=== PATIENT | female | born 1955 | race Caucasian/White ===

== ENCOUNTER 2021-08-11 09:58 | Emergency (ER) | payer MEDICARE, SELFPAY ==
[2021-08-11 10:07] VITALS: BP 168/84; PULSE 81; RESP 16; TEMP 36.8; O2SAT 99
--- NOTE | 2021-08-11 10:10 | ED.NECK ---
HPI - Neck Pain/Injury General Chief Complaint: Neck Pain/Injury Stated Complaint: Neck pain History of Present Illness HPI Narrative: This is a 66 year old female that present to the urgent care with neck pain . Patient denies any injury states that she is stiff and is unable to move her neck and it is severe. Patient is crying and yelping and I am unable to truly get a full description of the issue. Patient states that there is no radiation of pain and there is no falls no headache, no dizziness. Related Data Home Medications Medication Instructions Recorded Confirmed celecoxib 200 mg PO BID 08/11/21 08/11/21 furosemide 20 mg PO DAILY 08/11/21 08/11/21 hydrocodone-acetaminophen 1 tablet PO Q6H PRN 08/11/21 08/11/21 lisinopril-hydrochlorothiazide 1 tablet PO DAILY 08/11/21 08/11/21 oxybutynin chloride 10 mg PO DAILY 08/11/21 08/11/21 Allergies Allergy/AdvReac Type Severity Reaction Status Date / Time codeine Allergy Mild NAUSEA AND Verified 08/11/21 10:16 VOMITING Review of Systems Review of Systems: CONSTITUTIONAL: Denies fever, chills, or sweats. EYES: Denies visual changes, redness, or discharge. ENT: Denies rhinorrhea, congestion, sore throat, or otalgia. positive Neck pain inability CARDIOVASCULAR:Denies chest pain, palpitations, or edema. RESPIRATORY: Denies cough or dyspnea. GASTROINTESTINAL: Denies abdominal pain, nausea, vomiting, or diarrhea. GENITOURINARY: Denies dysuria or hematuria. SKIN:Denies rash or itching. MUSCULOSKELETAL:Denies back pain, joint pain, or myalgia. NEUROLOGIC: Denies headache, numbness, or weakness. PSYCHIATRIC:positive anxiety or depression PMFSH Comments At time as signature, I have reviewed and agree with nursing past medical, social, surgical and family history. Please see nursing chart for further information. There is no relevant family history pertinent to the presenting complaint. Exam Narrative: GENERAL:Well-appearing, crying and yelping well-nourished, and in no acute distress. HEAD:Normocephalic EYES: PERRLA and EOMI. ENT: Nares clear, no rhinorrhea or epistaxis. Mucous membranes moist. NECK: Supple. stiff neck painful turn neck pain with turning neck and up and down movement CHEST: Clear to auscultation. No respiratory distress. HEART: Regular rate and rhythm. Normal peripheral pulses. ABDOMEN: Soft, nontender,, normal active bowel sounds. EXTREMITIES: Normal range of motion. No edema. SKIN: Warm, dry, no rash. NEURO: No focal deficits. Alert and oriented x3. Course Vital Signs Vital signs: Vital Signs Temperature 98.2 F 08/11/21 10:07 Pulse Rate 81 08/11/21 10:07 Respiratory Rate 16 08/11/21 10:07 Blood Pressure 168/84 H 08/11/21 10:07 Pulse Oximetry 99 08/11/21 10:07 Temperature 98.2 F 08/11/21 10:19 Pulse Rate 81 08/11/21 10:19 Respiratory Rate 16 08/11/21 10:19 Blood Pressure 168/84 H 08/11/21 10:19 Pulse Oximetry 99 08/11/21 10:19 MDM - Neck Pain/Injury Differential Diagnosis Differential diagnosis: Likely disc disorder of cervical region, whiplash injury to neck, closed subluxation of cervical spine, cervical radiculopathy and torticollis Discharge Plan Discharge Clinical Impression: Strain of neck muscle Qualifiers: Encounter type: initial encounter Qualified Code(s): S16.1XXA - Strain of muscle, fascia and tendon at neck level, initial encounter Hypertension Qualifiers: Hypertension type: unspecified Qualified Code(s): I10 - Essential (primary) hypertension Patient Disposition: Home, Self-Care Condition: Stable Instructions: Antibiotic Form, Cervical Strain (ED), Hypertension (ED) Additional Instructions: Your blood pressure was elevated in the clinic today, I feel that this is due to your acute illness rather than essential hypertension. please follow-up with your regular doctor for further evaluation and monitor for evaluation of hypertension Please ELISEO schedule a followup visi
[2021-08-11 10:19] VITALS: BP 168/84; PULSE 81; RESP 16; TEMP 36.8; O2SAT 99
[2021-08-11] MEDS: KETOROLAC (*BKC) 60 MG/2 ML VIAL 30 MG IM (10:35)
== END 2021-08-11 10:59 | disposition home or self-care (01) ==
PROVIDERS: Emergency Provider Nurse Practitioner Family; PCP Internal Medicine
DX: S16.1XXA Strain of muscle, fascia and tendon at neck level, initial encounter (principal); X58.XXXA Exposure to other specified factors, initial encounter; I10 Essential (primary) hypertension; Z96.653 Presence of artificial knee joint, bilateral; Z96.643 Presence of artificial hip joint, bilateral; Z86.19 Personal history of other infectious and parasitic diseases
CPT/HCPCS: 96372; 99213; G0463; J1885

== ENCOUNTER 2024-08-31 22:54 | Emergency (ER) | payer MEDICARE, OTHER, SELFPAY ==
[2024-08-31 23:05] VITALS: BP 134/76; PULSE 71; RESP 16; TEMP 36.4; O2SAT 100
--- NOTE | 2024-09-01 00:11 | PC.NURSE ---
Patient came up to intake nurse and advised that she was going to go home and call her PCP in the morning. Patient had a steady gait upon exiting the ED.
== END 2024-09-01 00:11 | disposition left against medical advice (07) ==
PROVIDERS: PCP Internal Medicine
DX: R22.42 Localized swelling, mass and lump, left lower limb (principal)
CPT/HCPCS: 99199

== ENCOUNTER 2025-04-26 11:36 | Outpatient (CLI) | payer MEDICARE, SELFPAY ==
--- NOTE | ~2025-04-26 | DEXA_ITS ---
Bone Density Report Name: LORAINE CORONADO Age: 70 Sex: Female Ethnicity: White Date of : 1955 Indication: postmenopausal; screening for osteoporosis; prior fracture; Referring Provider: CARLI RAYA Study: Bone densitometry was performed. Exam Date: April 26, 2025 Accession number: [id number] Bone Density: Region BMD T-score Z-score Classification AP Spine(L1-L4) 1.039 -0.1 2.1 Normal World Health Organization criteria for BMD impression classify patients as: Normal (T-score at or above -1.0), Osteopenia (T-score between -1.0 and -2.5), or Osteoporosis (T-score at or below -2.5). Clinical Information Provided by Patient: Have had a previous hip or vertebral fracture Has had a low trauma fracture Has used the following medications: Vitamin D Patient maximum height was 67 Menopause Age: 49 Drinks caffeinated beverages Onset of menses at age 14 Number of children 1 Impression: The patient has normal bone mass. The patient has risk factors, including: previous fracture. Discussion: INCREASED RISK OF FRACTURE DUE TO HISTORY OF FRACTURE. The patient's previous fracture puts the patient at high risk of a future fracture. In untreated patients, the risk of osteoporotic fracture increases approximately two-fold for each 1.0 SD decrease in T-score. Low bone density is not the only risk factor for fracture; also consider factors such as patient's age, frailty or poor health, risk of falling, risk of injury, previous osteoporotic fracture, family history of osteoporosis, cigarette smoking, low body weight, etc. Not everyone with a low trauma fracture has osteoporosis; osteomalacia and other metabolic bone disorders should also be considered. Patients who have osteoporosis should be evaluated for specific diseases and conditions (secondary causes) that may cause or contribute to bone loss and fracture risk. National Osteoporosis Foundation (NOF) recommends pharmacologic intervention for patients with a prior hip or vertebral fracture regardless of BMD T-score. The patient should follow a healthful lifestyle (good nutrition with adequate calcium and vitamin D, and appropriate weight-bearing exercise). Follow-Up: Consider a repeat BMD and Vertebral Fracture Assessment (VFA) exam in 2 years or sooner if medically necessary, to reassess this patient's status. Reported by: ERIC on 04/26/2025 12:03:00 PM. Reviewed, dictated and finalized at location A.
--- OUTSIDE RECORDS SUMMARY | 2025-04-26 13:29 | XMS_ITS | Data Portability ---
Author Organization [facility] Address [address] [place] [address] Care Team Providers Care Fuel Conversion Technician Name Role Phone CARLI SRINIVASAN Primary Care Provider Assessment Encounter Date Assessment Date Assessment LastModified by Organization Details LastModified Time 05/11/2024 05/11/2024 doxycycline ibup rofen warm compresses follow up 1 week [email or web address] Not available 06/19/2024 16:49:25 05/19/2024 05/19/2024 continue with wa rm compresses she can use anti-inflammatories she has finished her antibiotics. See me in 2 weeks [email or web address] Not available 05/29/2024 21:22:33 06/30/2024 06/30/2024 I am going to ge t her to Interventional Cardiology see if there is anything that they can do for her varicosities. Oxybutynin for urinary incontinence lisinopril hydrochlorothiazide and Lasix for her blood pressure atorvastatin for dyslipidemia healthy lifestyle care instructions as well see me in 4 months [email or web address] Not available 06/30/2024 23:02:28 01/19/2025 01/19/2025 we will check bl ood work we will hold her atorvastatin phentermine and lisinopril until we get some blood work back. I will see her in a month I have told her to stop her oxybutynin as they are giving her Lasix as well as far as any pain medicines for her postop pain she was to get those from the surgeon also they are requesting some FMLA papers and I have told her to get those filled out by her orthopedist office all the questions have to do with the management of her fractures and what they anticipate the course will be what she will need time off returned to work etc. and that is most appropriately handled by her surgical service see me back 1 month [email or web address] Not available 01/21/2025 16:33:20 03/02/2025 03/02/2025 Blood pressure i s up a little bit but she is in pain she will get her pain medication from her surgeon who did her femur surgery we will order a DEXA I will see her in a month for holding off on the losartan just yet she will monitor it daily at home [email or web address] Not available 03/04/2025 16:27:37 Plan of Treatment Reminders Order Date Submit Date Provider Last Modified By Organization Details Last Modified Time Details Appointments ANY 15 2024 01:15P Lurdes Srinivasan MD Not available Not available Not available Lab lipid panel, serum 2024 025 [facility], [address], [place], [address], 01/20/2025 13:08:33 CBC w/ auto diff [address] [facility], [address], [place], [address], 01/20/2025 13:08:35 CMP, serum or plasma [address] [facility], [address], [place], [address], 01/20/2025 13:08:34 Referral vascular surgeon referral 2023 024 [place], [id number] [address], [address], [place], [address], 07/20/2024 18:19:55 Procedures None recorded. Surgeries None recorded. Imaging DEXA 2024 025 [facility], [address], [place], [address], 04/12/2025 12:35:49 Medication Orders doxycycli ne hyclate 100 mg capsule 2023 024 [facility], [address] [place] [address], [id number], 06/30/2024 16:10:52 Patient TargetsNo targets recorded. Patient Instructions Encounter Date Encounter Id Patient Instructions Last Modified By Organization Details Last Modified Time 05/11/2024 [id number] A healthy lifestyle: care instructions [email or web address] Not available 05/11/2024 18:15:29 06/30/2024 [id number] A healthy lifestyle: care instructions [email or web address] Not available 06/30/2024 17:50:47 01/19/2025 [id number] A healthy lifestyle: care instructions [email or web address] Not available 01/19/2025 20:55:26 Reason for Referral Vascular Surgeon Referral fo r Varicose veins of lower extremity Referring Physician: Carli Srinivasan, Internal Medicine, Encounter Date: 06/30/2024 Results Created Date Observation Date Name Description Value Unit Range Abnormal Flag Note LastModifiedBy Organization Detail LastModifiedTime 01/20/2001/20/2025 LIPID PANEL cholesterol, total 164 mg/dL 100-19 9 Not Available [facility] ([facility]) [address] [place], [address], 01/20/2025 13:08:33 01/20/20 25 01/20/2025 LIPID PANEL triglyceride s 154 mg/dL 0-149 above high normal Not Available [facility] ([facility]) [address] [place], [address], 01/20/2025 13:08:33 01/20/20 25 01/20/2025 LIPID PANEL HDL cholesterol 63 mg/dL >39 Not Available [facility] ([facility]) [address] [place], [address], 01/20/2025 13:08:33 01/20/20 25 01/20/2025 LIPID PANEL VLDL cholesterol max 26 mg/dL 5-40 Not Available [facility] ([facility]) [address] [facility], [place], [address], 01/20/2025 13:08:33 01/20/20 25 01/20/2025 LIPID PANEL LDL chol calc ([facility]) 75 mg/dL 0-99 Not Available [facility] ([facility]) [address] [place], [address], 01/20/2025 13:08:33 01/20/20 25 01/20/2025 CMP14 glucose 114 mg/dL 70-99 above high normal Not Available [facility] ([facility]) [address] [place], [address], 01/20/2025 13:08:34 01/20/20 25 01/20/2025 CMP14 BUN 32 mg/dL 8-27 above high normal Not Available [facility] ([facility]) [address] [place], [address], 01/20/2025 13:08:34 01/20/20 25 01/20/2025 CMP14 creatinine 1.59 mg/dL 0.57-1 .00 above high normal Not Available [facility] ([facility]) [address] [place], [address], 01/20/2025 13:08:34 01/20/20 25 01/20/2025 CMP14 eGFR 35 mL/mi n/1.7 3 >59 below low normal Not Available [facility] ([facility]) [address] [place], [address], 01/20/2025 13:08:34 01/20/20 25 01/20/2025 CMP14 BUN/creatini ne ratio 20 12-28 Not Available [facility] ([facility]) [address] [place], [address], 01/20/2025 13:08:34 01/20/20 25 01/20/2025 CMP14 sodium 140 mmol/ L 134-14 4 Not Available [facility] ([facility]) [address] [place], [address], 01/20/2025 13:08:34 01/20/20 25 01/20/2025 CMP14 potassium 4.4 mmol/ L 3.5-5. 2 Not Available [facility] ([facility]) [address] [place] [address], [place], [address], 01/20/2025 13:08:34 01/20/20 25 01/20/2025 CMP14 chloride 102 mmol/ L 96-106 Not Available [facility] ([facility]) [address] [facility], [place], [address], 01/20/2025 13:08:34 01/20/20 25 01/20/2025 CMP14 carbon dioxide, total 24 mmol/ L 20-29 Not Available [facility] ([facility]) [address] [facility], [place], [address], 01/20/2025 13:08:34 01/20/20 25 01/20/2025 CMP14 anion gap 14.0 mmol/ L 10.0-1 8.0 Not Available [facility] ([facility]) [address] [facility], [place], [address], 01/20/2025 13:08:34 01/20/20 25 01/20/2025 CMP14 calcium 9.4 mg/dL 8.7-10 .3 Not Available [facility] ([facility]) [address] [facility], [place], [address], 01/20/2025 13:08:34 01/20/20 25 01/20/2025 CMP14 protein, total 6.8 g/dL 6.0-8. 5 Not Available [facility] ([facility]) [address] [facility], [place], [address], 01/20/2025 13:08:34 01/20/20 25 01/20/2025 CMP14 albumin 4.2 g/dL 3.9-4. 9 Not Available [facility] ([facility]) [address] [facility] [place], [address], 01/20/2025 13:08:34 01/20/20 25 01/20/2025 CMP14 globulin, total 2.6 g/dL 1.5-4. 5 Not Available [facility] ([facility]) [address] [facility] [place], [address], 01/20/2025 13:08:34 01/20/20 25 01/20/2025 CMP14 bilirubin, total 0.3 mg/dL 0.0-1. 2 Not Available [facility] ([facility]) [address] [facility], [place], [address], 01/20/2025 13:08:34 01/20/20 25 01/20/2025 CMP14 alkaline phosphatase 253 IU/L 44-121 above high normal Not Available [facility] ([facility]) [address] [facility] [place], [address], 01/20/2025 13:08:34 01/20/20 25 01/20/2025 CMP14 AST (SGOT) 24 IU/L 0-40 Not Avail able [facility] ([facility]) [address] [facility] [place], [address], 01/20/2025 13:08:34 01/20/20 25 01/20/2025 CMP14 ALT (SGPT) 28 IU/L 0-32 Not Avail able [facility] ([facility]) [address] [facility] [place], [address], 01/20/2025 13:08:34 01/20/20 25 01/20/2025 CBC WITH DIFFE RENTI AL/PL ATELE T WBC 6.8 x10e3 /uL 3.4-10 .8 Not Available [facility] ([facility]) [address] [facility] [place], [address], 01/20/2025 13:08:35 01/20/20 25 01/20/2025 CBC WITH DIFFE RENTI AL/PL ATELE T RBC 3.40 x10e6 /uL 3.77-5 .28 below low normal Not Available [facility] ([facility]) [address] [facility], [place], [address], 01/20/2025 13:08:35 01/20/20 25 01/20/2025 CBC WITH DIFFE RENTI AL/PL ATELE T hemoglobin 10.5 g/dL 11.1-1 5.9 below low normal Not Available [facility] ([facility]) [address] [facility], [place], [address], 01/20/2025 13:08:35 01/20/20 25 01/20/2025 CBC WITH DIFFE RENTI AL/PL ATELE T hematocrit 32.2 % 34.0-4 6.6 below low normal Not Available [facility] ([facility]) [address] [facility], [place], [address], 01/20/2025 13:08:35 01/20/20 25 01/20/2025 CBC WITH DIFFE RENTI AL/PL ATELE T MCV 95 fL 79-97 Not Available [facility] ([facility]) [address] [place], [address], 01/20/2025 13:08:35 01/20/20 25 01/20/2025 CBC WITH DIFFE RENTI AL/PL ATELE T MCH 30.9 pg 26.6-3 3.0 Not Available [facility] ([facility]) [address] [place], [address], 01/20/2025 13:08:35 01/20/20 25 01/20/2025 CBC WITH DIFFE RENTI AL/PL ATELE T MCHC 32.6 g/dL 31.5-3 5.7 Not Available [facility] ([facility]) [address] [place], [address], 01/20/2025 13:08:35 01/20/20 25 01/20/2025 CBC WITH DIFFE RENTI AL/PL ATELE T RDW 13.5 % 11.7-1 5.4 Not Available [facility] ([facility]) [address] [facility], [place], [address], 01/20/2025 13:08:35 01/20/20 25 01/20/2025 CBC WITH DIFFE RENTI AL/PL ATELE T platelets 354 x10e3 /uL 150-45 0 Not Available [facility] ([facility]) [address] [facility], [place], [address], 01/20/2025 13:08:35 01/20/20 25 01/20/2025 CBC WITH DIFFE RENTI AL/PL ATELE T neutrophils 52 % notest ab. Not Available [facility] ([facility]) [address] [facility], [place], [address], 01/20/2025 13:08:35 01/20/20 25 01/20/2025 CBC WITH DIFFE RENTI AL/PL ATELE T lymphs 27 % notest ab. Not Available [facility] ([facility]) [address] [facility], [place], [address], 01/20/2025 13:08:35 01/20/20 25 01/20/2025 CBC WITH DIFFE RENTI AL/PL ATELE T monocytes 13 % notest ab. Not Available [facility] ([facility]) [address] [facility], [place], [address], 01/20/2025 13:08:35 01/20/20 25 01/20/2025 CBC WITH DIFFE RENTI AL/PL ATELE T eos 6 % notest ab. Not Available [facility] ([facility]) [address] [facility], [place], [address], 01/20/2025 13:08:35 01/20/20 25 01/20/2025 CBC WITH DIFFE RENTI AL/PL ATELE T basos 2 % notest ab. Not Available [facility] ([facility]) [address] [facility], [place], [address], 01/20/2025 13:08:35 01/20/20 25 01/20/2025 CBC WITH DIFFE RENTI AL/PL ATELE T neutrophils (absolute) 3.6 x10e3 /uL 1.4-7. 0 Not Available [facility] ([facility]) [address] [facility], [place], [address], 01/20/2025 13:08:35 01/20/20 25 01/20/2025 CBC WITH DIFFE RENTI AL/PL ATELE T lymphs (absolute) 1.8 x10e3 /uL 0.7-3. 1 Not Available [facility] ([facility]) [address] [facility], [place], [address], 01/20/2025 13:08:35 01/20/20 25 01/20/2025 CBC WITH DIFFE RENTI AL/PL ATELE T monocytes(ab solute) 0.9 x10e3 /uL 0.1-0. 9 Not Available [facility] ([facility]) [address] [facility], [place], [address], 01/20/2025 13:08:35 01/20/20 25 01/20/2025 CBC WITH DIFFE RENTI AL/PL ATELE T eos (absolute) 0.4 x10e3 /uL 0.0-0. 4 Not Available [facility] ([facility]) [address] [facility], [place], [address], 01/20/2025 13:08:35 01/20/20 25 01/20/2025 CBC WITH DIFFE RENTI AL/PL ATELE T baso (absolute) 0.1 x10e3 /uL 0.0-0. 2 Not Available [facility] ([facility]) [address] [facility], [place], [address], 01/20/2025 13:08:35 01/20/20 25 01/20/2025 CBC WITH DIFFE RENTI AL/PL ATELE T immature granulocytes 0 % notest ab. Not Available [facility] ([facility]) [address] [facility], [place], [address], 01/20/2025 13:08:35 01/20/20 25 01/20/2025 CBC WITH DIFFE RENTI AL/PL ATELE T immature grans (abs) 0.0 x10e3 /uL 0.0-0. 1 Not Available [facility] ([facility]) [address] [facility], [place], [address], 01/20/2025 13:08:35 08/08/20 24 08/08/2024 US, ani x, venou s, lower extre mity No observ ation record ed. [email or web address] [facility] [address] [facility], [place], [address], 08/09/2024 11:40:39 10/04/20 24 10/04/2024 US, ani sharp, venou s, lower extre mity No observ ation record ed. [email or web address] [facility] [address] [facility], [place], [address], 10/05/2024 12:45:44 11/17/19 25 01/21/2023 MAMMO , scree katerine, digit al, bilat eral No observ ation record ed. BARCODE Not Available 2024 19:59:42 Result Notes None recorded. Problems Name Problem SNOMED Code Status Onset Date Resolution Date Notes Provider Name and Address Organization Details Recorded Time Gastroesophage al reflux disease without esophagitis 463758902 Active 2023 Carli Srinivasan MD Attn: Maria Ines carey,[address] [facility], [place], [address], [facility] 16:46:40 Hyperlipidemia 76637143 Active 2023 Carli Srinivasan MD Attn: Maria Ines carey,[address] [facility], [place], [address], [place] - [facility] 4 16:46:41 Urinary incontinence 508507232 Active 2023 Carli Srinivasan MD Attn: Maria Ines carey,[address] [facility], [place], [address], [place] - [facility] 4 16:46:43 Osteoarthritis 184666252 Active 2023 Carli Srinivasan MD Attn: Maria Ines carey,[address] [facility], [place], [address], [place] - [facility] 4 16:46:44 Varicose veins of lower extremity 04410434 Active 2023 Sahra Shanks MA null, [place] - [facility] 4 16:55:17 Essential hypertension 03932741 Active 2024 Carli Srinivasan MD Attn: Maria Ines carey,[address] [facility], [place], [address], [place] - [facility] 5 16:27:29 Problem Notes None recorded. Procedures Surgical History Date Name Laterality Status Provider Name and Address Organization Details Recorded Time excision of Bartholin's cyst completed Jessica Jaimes [facility] 02/04/2024 16:22:05 bilateral cataract surgery completed Jessica Jaimes [facility] 02/04/2024 16:22:13 Breast Surgery completed Jessica Jaimes [facility] 02/04/2024 16:22:19 Joint Replacement completed Israel Jaimes [facility] 02/04/2024 16:22:26 Tonsillectomy completed Jessica Jaimes [facility] 02/04/2024 16:22:33 Imaging Results None recorded. Procedure Notes None recorded. Medical Equipment None Reported. Allergies No known drug allergies Medications Name Sig Start Date Stop Date Status Note LastModified by Organization Details LastModified Time methocarba mol 500 mg tablet TAKE 2 TABLETS BY MOUTH THREE TIMES DAILY active Not Available Not Available No t Available acetaminop hen 325 mg tablet Take 2 tablets every 6 hours by oral route. active Not Available Not Available No t Available oxybutynin chloride ER 15 mg tablet,ext ended release 24 hr TAKE 1 TABLET BY MOUTH ONCE DAILY active Not Available Not Available No t Available doxycyclin e hyclate 100 mg capsule take ONE capsule twice a DAY by oral route FOR 10 DAYS 06/30 completed Not Available Not Available Not Available atorvastat in 10 mg tablet TAKE 1 TABLET BY MOUTH IN THE EVENING active Not Available Not Available No t Available oxybutynin chloride ER 10 mg tablet,ext ended release 24 hr TAKE 1 TABLET BY MOUTH ONCE DAILY 02/03 completed Not Available Not Available Not Available valacyclov ir 1 gram tablet TAKE 1 TABLET BY MOUTH ONCE DAILY active as needed Not Available Not Available Not Available Zithromax Z-Shlomo 250 mg tablet TAKE 2 TABLETS (500 MG) BY ORAL ROUTE ONCE DAILY FOR 1 DAY THEN 1 TABLET (250 MG) BY ORAL ROUTE ONCE DAILY FOR 4 DAYS 01/19 completed Not Available Not Available Not Available phentermin e 37.5 mg tablet TAKE 1 TABLET BY MOUTH DAILY 01/19 completed Not Available Not Available Not Available famotidine 20 mg tablet TAKE 1 TABLET BY MOUTH ONCE DAILY active Not Available Not Available No t Available neomycin-p olymyxin-d exameth 3.5 mg/mL-10,0 00 unit/mL-0. 1% eye drops INSTILL 1 DROP INTO RIGHT EYE 4 TIMES DAILY FOR 2 WEEKS 02/03 completed Not Available Not Available Not Available nystatin 100,000 unit/gram topical cream APPLY CREAM TOPICALL Y TO AFFECTED AREA TWICE DAILY 02/03 completed Not Available Not Available Not Available hydrochlor othiazide 25 mg tablet TAKE 1/2 (ONE-AMOL F) TABLET BY MOUTH ONCE DAILY active Not Available Not Available No t Available furosemide 20 mg tablet TAKE 1 TABLET BY MOUTH ONCE DAILY active Not Available Not Available No t Available lisinopril 10 mg-hydroch lorothiazi de 12.5 mg tablet Take 1 tablet by mouth once daily 01/19 completed Not Available Not Available Not Available polyethyle ne glycol 3350 17 gram/dose oral powder Take 17 g every day by oral route as needed. active Not Available Not Available No t Available oxycodone 5 mg tablet TAKE 1 TABLET BY MOUTH EVERY 4 HOURS NEEDED FOR PAIN active Not Available Not Available No t Available topiramate 50 mg tablet TAKE 1 TABLET BY MOUTH ONCE DAILY active Not Available Not Available No t Available cholecalci ferol (vitamin D3) 25 mcg (1,000 unit) tablet TAKE 1 TABLET BY MOUTH ONCE DAILY active Not Available Not Available No t Available Eliquis 2.5 mg tablet TAKE 1 TABLET BY MOUTH TWICE DAILY FOR 17 DAYS active Not Available Not Available No t Available BinaxNOW COVID-19 Ag Self Test kit Use as Directed on the Package 02/03 completed Not Available Not Available Not Available Paxlovid 300 mg (150 mg x 2)-100 mg tablets in a dose pack TAKE 3 TABLETS TOGETHER (TWO 150 MG NIRMATRE LVIR TABLETS AND ONE 100 MG RITONAVI R TABLET) BY MOUTH TWICE DAILY FOR 5 DAYS. 02/03 completed Not Available Not Available Not Available Vitals Date Recorded Body height Body mass index (BMI) Body weight Heart rate Oxygen saturation Oxygen saturation in Arterial blood by Pulse oximetry Systolic blood pressure Diastolic blood pressure Provider Name and Address Organization Details Last Updated DateTime 5 172.72 cm 31.1 kg/m2 73155 g 72 /min 98 % 98 % 130 mm[Hg] 84 mm[Hg] Myriam [facility] 5 14:24:59 Date Recorded Body height Body mass index (BMI) Body weight Heart rate Oxygen saturation Oxygen saturation in Arterial blood by Pulse oximetry Systolic blood pressure Diastolic blood pressure Provider Name and Address Organization Details Last Updated DateTime 5 172.72 cm 32.1 kg/m2 29539.3 5 g 73 /min 98 % 98 % 150 mm[Hg] 86 mm[Hg] Myriam Phipps [facility] 5 15:40:00 Date Recorded Body height Heart rate Oxygen saturation Oxygen saturation in Arterial blood by Pulse oximetry Systolic blood pressure Diastolic blood pressure Provider Name and Address Organization Details Last Updated DateTime 4 172.72 cm 77 /min 98 % 98 % 132 mm[Hg] 84 mm[Hg] Bertha Ribeiro MA [facility] 4 16:33:51 Date Recorded Body height Body mass index (BMI) Body weight Heart rate Oxygen saturation Oxygen saturation in Arterial blood by Pulse oximetry Systolic blood pressure Diastolic blood pressure Provider Name and Address Organization Details Last Updated DateTime 4 172.72 cm 29.5 kg/m2 76812.9 2 g 71 /min 97 % 97 % 126 mm[Hg] 74 mm[Hg] Valente Flores MA [facility] 09:55:28 Date Recorded Body height Body mass index (BMI) Body weight Heart rate Oxygen saturation Oxygen saturation in Arterial blood by Pulse oximetry Systolic blood pressure Diastolic blood pressure Provider Name and Address Organization Details Last Updated DateTime 4 172.72 cm 29 kg/m2 95317.4 2 g 76 /min 98 % 98 % 128 mm[Hg] 70 mm[Hg] Bertha Ribeiro MA [place] - [facility] 4 16:04:48 Social History Question Answer Notes LastModified by Organizat ion Details LastModified Time Tobacco Smoking Status Former Smoker quit @ age 38 (31 yrs ago 02/04/24-, gilles) GILLES Johnson [facility], [facility] 02/04/2024 16:23:04 Do You Have An Advance Directive? No Information not available 05/11/2024 Are You Blind Or Do You Have Difficulty Seeing? Yes Glasses Information not available 05/11/2024 What Is Your Level Of Caffeine Consumption? Heavy Information not available 05/11/2024 In The 14 Days Before Symptom Onset, Have You Had Close Contact With A Laboratory-confir med COVID-19 While That Case Was Ill? No Information not available 05/11/2024 In The 14 Days Before Symptom Onset, Have You Had Close Contact With A Person Who Is Under Investigation For COVID-19 While That Person Was Ill? No Information not available 05/11/2024 Have You Been To An Area Known To Be High Risk For COVID-19? No Information not available 05/11/2024 Are You Deaf Or Do You Have Serious Difficulty Hearing? No Information not available 05/11/2024 What Type Of Diet Are You Following? REGULAR Information not available 05/11/2024 Are There Any Guns Present In Your Home? No Information not available 05/11/2024 What Was The Date Of Your Most Recent Tobacco Screening? 03/02/2025 [email or web address] Information not available 03/02/2025 What Is Your Relationship Status? Information not available 05/11/2024 Do You Use Your Seat Belt Or Car Seat Routinely? Yes Information not available 05/11/2024 Do You Have Smoke And Carbon Monoxide Detectors In Your Home? Yes Information not available 05/11/2024 How Much Tobacco Do You Smoke? 1 PPW [email or web address] Information not available 05/19/2024 Do You Use Sunscreen Routinely? Yes Information not available 05/11/2024 Has Tobacco Cessation Counseling Been Provided? No Information not available 05/11/2024 Sex: Female Functional Status Question Answer Note LastModified by Organizat ion Details LastModified Time Do you use any illicit or recreational drugs? No Information not available 05/11/2024 Do you or have you ever used any other forms of tobacco or nicotine? No Information not available 05/11/2024 What is your level of alcohol consumption? None Information not available 05/11/2024 Are you currently employed? No Information not available 05/11/2024 Are you able to care for yourself? Yes Information not available 05/11/2024 What is your exercise level? None Information not available 05/11/2024 Mental Status Question Answer Note LastModified by Organization D etails LastModified Time Do you feel stressed (tense, restless, nervous, or anxious, or unable to sleep at night)? [id number] Information not available 05/11/2024 Family History Relationship Description Onset Age of this Age Resolved Age Notes LastModified by Organization Details LastModified Time Sister Harmful pattern of use of alcohol [email or web address] Not available 01/08 16:23:15 Sister Depressive disorder [email or web address] Not available 01/08 16:23:22 Sister Kidney disease [email or web address] Not available 01/08 16:23:41 Sister Pancreatitis [email or web address] Not av ailable 02/04/2024 16:23:48 Mother Heart disease [email or web address] Not available 01/08 16:23:27 Mother Hypertensive disorder [email or web address] Not available 01/08 16:23:33 Medical History Condition Response Skin Problems Y Muscle, Joint, or Bone Problems Y Acid Reflux (GERD) Y Kidney or Bladder Problems Y Gynecological HistoryNo gynecological history recorded. Obstetrics History GPAL:G 0 P 0 0 0 0 Immunizations Vaccine Type Date Status Note Provider Nam e and Address Organization Details Recorded Time Influenza, split virus, quadrivalent, preservative 7 completed Valente [place], [place] [facility] 05/18/2024 14:05:19 zoster recombinant 8 completed Valente [place] [facility] 05/18/2024 14:05:19 zoster recombinant 8 completed Val[place] [facility] 05/18/2024 14:05:19 Influenza, high-dose, quadrivalent, PF 0 completed Val[place] [facility] 05/18/2024 14:05:19 Influenza, high-dose, quadrivalent, PF 2 completed Valente [place] [facility] 05/18/2024 14:05:19 Influenza, high-dose, quadrivalent, PF 1 completed Valente [place] [facility] 05/18/2024 14:05:19 COVID-19, mRNA, LNP-S, PF, 100 mcg/0.5mL dose or 50 mcg/0.25mL dose 1 completed Valente [place] [facility] 05/18/2024 14:05:20 COVID-19, mRNA, LNP-S, PF, 100 mcg/0.5mL dose or 50 mcg/0.25mL dose 1 completed Valente [place] [facility] 05/18/2024 14:05:20 COVID-19, mRNA, LNP-S, PF, 100 mcg/0.5mL dose or 50 mcg/0.25mL dose 1 completed Valente [place] [facility] 05/18/2024 14:05:20 COVID-19, mRNA, LNP-S, PF, 100 mcg/0.5mL dose or 50 mcg/0.25mL dose 1 completed JENNIFER [place] [facility] 05/18/2024 14:05:20 COVID-19, mRNA, LNP-S, bivalent, PF, 30 mcg/0.3 mL dose 3 [place] [facility] 05/18/2024 14:05:20 pneumococcal polysaccharide PPV23 1 [place] [facility] 05/18/2024 14:05:20 Tdap 3 [place] [facility] 05/18/2024 14:05:20 Pneumococcal conjugate PCV 13 9 [place] [facility] 05/18/2024 14:05:20 zoster live 6 completed [place] [facility] 05/18/2024 14:05:20 Influenza, high-dose, trivalent, PF 9 completed [place] [facility] 05/18/2024 14:05:20 Influenza, split virus, trivalent, preservative 3 completed [place] [facility] 05/18/2024 14:05:20 Influenza, split virus, trivalent, preservative 3 completed [place] [facility] 05/18/2024 14:05:20 Influenza, split virus, trivalent, PF 7 [place] [facility] 05/18/2024 14:05:20 Influenza, split virus, trivalent, PF 5 completed [place] [facility] 05/18/2024 14:05:20 Hep A, adult 7 completed [place] [facility] 05/18/2024 14:05:20 Hep A, adult 6 completed [place] [facility] 05/18/2024 14:05:20 Hep A, adult 6 completed Cindyvignesh JENNIFER Flores null, [facility] 05/18/2024 14:05:20 Influenza, split virus, quadrivalent, PF 6 completed JENNIFER Perdue, [facility] 05/18/2024 14:05:20 Influenza, split virus, quadrivalent, PF 8 completed JENNIFER Perdue, [facility] 05/18/2024 14:05:20 Past Encounters Encounter ID Performer Location Encounter Start Date Encounter Closed Date Diagnosis/Indication Diagnosis SNOMED-CT Code Diagnosis ICD10 Code Diagnosis Note [id number] Carli Srinivasan MD [facility] [employer] [address] [place] [address] 1 02/04/2024 15:54:59 02/04/2024 17:01:11 Gastroesophageal reflux disease without esophagitis 592301762 K21.9 Hyperlipidemia 63676079 E78.5 Urinary incontinence 165 936053 R32 Osteoarthritis 178866269 M19.90 [id number] Carli Srinivasan MD [facility] (Adult Med) [address] [place] [id number] 0 05/11/2024 15:49:01 05/11/2024 17:52:35 Obesity 425492044 E66.8 Thrombophlebitis 7714600 1 I80.9 [id number] Carli Srinivasan MD [facility] [employer] [address] [place] [id number] 1 05/19/2024 09:42:11 05/19/2024 10:53:46 Superficial thrombophlebitis 3295903 I80.9 [id number] Carli Srinivasan MD [facility] [employer] [address] [place] [id number] 1 06/30/2024 14:52:32 06/30/2024 16:55:31 Overweight 458774121 E66.3 Varicose v eins of lower extremity 40251960 I83.93 Gastroesop hageal reflux disease without esophagitis 475326545 K21.9 Hyperlipidemia 40556434 E78.5 Osteoarthritis 901645120 M19.90 Urinary incontinence 165 821734 R32 [id number] Carli Srinivasan MD [facility] [employer] [address] [place] [address] 01/19/2025 14:06:03 01/19/2025 15:22:15 Body mass index 30+ - obesity 145683084 Z68.31 Obesity 186148526 E66.9 Essential hypertension 49182720 I10 Gastroesop hageal reflux disease without esophagitis 383009031 K21.9 Hyperlipidemia 65274167 E78.5 [id number] Carli Srinivasan MD [facility] [employer] [address] [place] [address] 03/02/2025 14:38:35 03/02/2025 17:02:47 Postmenopausal state 18206870 Z78.0 Gastroesop hageal reflux disease without esophagitis 538993239 K21.9 Essential hypertension 67243087 I10 Health Concerns Section Related Observation LastModified by Organization Detai ls LastModified Time None Recorded Concern Status LastModified by Organization Details LastModified Time None Recorded Advance Directives Directive N: Payers Insurance Date Sequence Insurance Name Policy Number Policy Huffman Covered Member ID Huffman Member ID Guarantor Name 04/17/2025 1 [facility] (MEDICARE REPLACEMENT/A DVANTAGE - HMO) [id number] Claribel Mota [id number] Claribel Mota Notes Date Note Type Note Provider Name and Address Organization Details Recorded Time 05/11/2024 text/html red hot area on inside left thigh Carli Srinivasan MD Attn: [address] [place], [address], [facility] 06/19/2024 16:49:40 05/19/2024 text/html leg still hurts a little bit no chest pain or shortness of breath Carli Srinivasan MD Attn: [address] [place], [address], [facility] 05/29/2024 21:24:33 06/30/2024 text/html varicose veins i n her thrombophlebitis is doing better. Overweight needs help losing some weight. GERD no nausea no vomiting. Hyperlipidemia taking her statin trying to lose weight. Osteoarthritis is doing okay urinary incontinence stable she is seeing a weight loss clinic and getting phentermine and topiramate Carli Srinivasan MD Attn: Accounting[address] [facility], [place], [address], [facility] 06/30/2024 23:02:46 01/19/2025 text/html slipped and fell and broke both femurs and had to have surgery at [facility] went to rehab facility there was allegedly some hyperkalemia so they stopped her a her lisinopril they also stopped her phentermine and for unclear reasons they have held her atorvastatin she is in with her sister today doing pretty well JENNIFER Portillo, [place] - [facility] 03/02/2025 09:46:40 03/02/2025 text/html Slow improvement in her leg pain she does not need a DEXA scan she is not on the losartan just it in her blood pressure has been up a little bit but she is in pain Carli Srinivasan MD Attn: Accounting[address] [facility], [place], [address], [facility] 03/04/2025 16:27:54 OBGyn Episode No OBEpisode recorded.
--- OUTSIDE RECORDS SUMMARY | 2025-04-26 13:29 | XMS_ITS | CONTINUITY OF CARE DOCUMENT ---
Author Name joe joe Address Unknown Organization [facility] Address [address] [place] [address] Phone [phone] Care Team Providers Care Online Editor Name Role Phone Yung LEYVA, Last Unavailable [phone] CARLI MACKENZIE MD Unavailable CARLI MACKENZIE MD Unavailable [phone] PROBLEMS Condition Status Date Provider Notes Cardiology examination completed - Last Barragan MD Hypertension active Lastnic Barragan MD Hepatitis C active Lastnic Barragan MD Varicose veins, lower extremities active Lastnic Barragan MD Swelling of bilateral legs active p D as MD ENCOUNTERS Date Type Provider Location Encounter Diag nosis - In-person encounter Office Visit [facility] - [facility] Cardiology examinati on - In-person encounter Office Visit Last Barragan MD [facility] HypertensionHepatiti s CVaricose veins, lower extremitiesSwelling of bilateral legs VITAL SIGNS Date Observation Value Provider Body Mass Index (Ratio) 29.97 kg/m2 nic Barragan MD oxygen saturation, oximetry 98 % Judith Almeida pulse rate 58 /min Judith Almeida blood pressure, diastolic 98 mm[Hg] Promise Almeida blood pressure, systolic 187 mm[Hg] Merissa Almeida weight E&M 191.4 [lb_av] Judith Almeida blood pressure, cuff size regular Em arely Almeida height E&M 67 [in_i] Judith Almeida blood pressure, cuff size regular Am david Joby RN blood pressure, diastolic 102 mm[Hg] Am david Joby RN blood pressure, systolic 179 mm[Hg] Rosston nda Lancaster RN oxygen saturation, oximetry 97 % Hannahdavid Robisonyle RN pulse rate 63 /min Hannahdavid Robisonyle RN height E&M 67 [in_i] Hannah Robisonyle RN respiratory rate E&M 16 /min Hannahdavid Robisonyle RN Body Mass Index (Ratio) 31.01 kg/m2 Sund nic Barragan MD blood pressure, cuff size regular Ke rri Manuel blood pressure, diastolic 100 mm[Hg] Ke rri Deniuenevenuer blood pressure, systolic 164 mm[Hg] Teresita Jackson oxygen saturation, oximetry 98 % Meghan Jackson respiratory rate E&M 14 /min Meghan mcnamara pulse rate 61 /min Meghan Kidd lder weight E&M 198 [lb_av] Meghan Kidd lder height E&M 67 [in_i] Meghan jordaner HISTORY OF MEDICATION USE Medication Status Instructions Dates Provider Indications Com ments phentermine 37.5 mg tablet active TAKE 1 TABLET BY MOUTH BEFORE BREAKFAST Meghan Jackson atorvastatin 10 mg tablet active TAKE 1 TABLET BY MOUTH EVERY DAY Meghan Jackson furosemide 20 mg tablet active take 1 pill as needed for swelling Meghan Jackson lisinopril-hydroc hlorothiazide 10-12.5 mg tablet active TAKE 1 TABLET BY MOUTH ONCE A DAY Meghan Jackson oxybutynin chloride 15 mg tablet extended release 24hr active take 1 pill a day Meghan Jackson valacyclovir 1 gram tablet active TAKE 1 TABLET BY MOUTH ONCE DAILY as needed Meghan Jackson SOCIAL HISTORY Date Observation Value Provider number of grandchildren Last Mckinney QC CHEMIST FUNCTIONAL STATUS Date Observation Value Provider Reason Fall Assessment not done medical c ontraindication Judith Almeida INSURANCE PROVIDERS Payer name Policy type / Coverage type [place] [employer] party ID [employer]AGE ST 0 003 (HMO POS) Medicare [id number] ADVANCE DIRECTIVES Name Date DISCUSSED - NO DECISION MADE TREATMENT PLAN Date Name Performer Cardiology: H er updated medication list for this problem includes: Furosemide 20 Mg Tablet (Furosemide) ..... Take 1 pill as needed for swelling Lisinopril-hydrochlorothiazide 10-12.5 Mg Tablet (Lisinopril-hydrochlorothiazide) ..... Take 1 tablet by mouth once a day BP today: 187/98 P rior BP: 179/102 (08/08/2024) states she has [facility] Last Barragan MD Cardiology:Her venou s doppler shows occluded GSV's, patent and refluxing SSV and b/l vaicose veins with frombosed varicose vein in right thigh. She had varithena on 09/29/24 in left mid thigh and upper calf. Her dopper post procedure showed that these veins were occluded but she had left distal calf and ankle varicose veins and left ankle research and development chemist. October 27, 2024 T gaby she states that SHe has a thrombosed vein in right thigh post procedure and is concerned about it. She has not any more cramps in the left leg like she used to. She has had severe pain righ tthigh where she has a large varicose veins and hurts more at night. has a cord wher eshe has a thrombosed vein in left thigh and left medial calf - pt reassured w ill plan right leg varithena due to severe sx Last Barragan MD Cardiology:same b ut slightly better with compression socls l eft always swells more suspet MTS d /w ppt re eval and rx for this and she will let me know if she wishes to proceed Lastnic Barragan MD Cardiology:Her venou s doppler shows occluded GSV's, patent and refluxing SSV and b/l vaicose veins with frombosed varicose vein in right medial thigh can do varithena fo r varicose veins and venaseal for ssv left thigh varithena first Lastcarmen Barragan MD Cardiology:this is b tk and could be from b/l SSV reflux Yung LEYVA Cardiology:did not t rosario meds today H er updated medication list for this problem includes: Furosemide 20 Mg Tablet (Furosemide) ..... Take 1 pill as needed for swelling Lisinopril-hydrochlorothiazide 10-12.5 Mg Tablet (Lisinopril-hydrochlorothiazide) ..... Take 1 tablet by mouth once a day BP today: 179/102 P rior BP: 164/100 (07/20/2024) Lastnic Barragan MD Cardiology:C/o swell ing/ pain intermittently. T hrombosed veins N O hx of dvt. c heck venous duplex Sandra Nalluri QC CHEMIST Cardiology:2-3+ charissa a BLE t akes lasix as needed L>R could be realted to MTS. c heck venous duplex Sandra Nalluri QC CHEMIST Cardiology:On valcyclovir Neelim a Nalluri QC CHEMIST Cardiology: B P today: 164/100 d id not take medication today Sandra Nalluri QC CHEMIST Date Name Venous Doppler Bilat eral LE Venous Doppler Bilat eral LE - Reflux HISTORY OF PROCEDURES Procedure Date Procedure Name Provider Procedure Notes S sengus Complex e/m visit add on Yung LEYVA completed Complex e/m visit add on Yung LEYVA completed Complex e/m visit add on Yung LEYVA completed EKG Last Barragan MD completed
--- OUTSIDE RECORDS SUMMARY | 2025-04-26 13:29 | XMS_ITS | Referral Summary ---
Author Organization [facility] Address [address] [place] [id number] Care Team Providers Care Plasma Processing Technician Name Role Phone Aakash Srinivasan MD Primary Care Provider Encounters Date Type Department Care Team Description 04/20/2025 9:30 AM CDT - 04/20/2025 11:59 PM CDT Hospital Encounter [facility] [address] [place] [address] Other closed fracture of distal end of right femur with routine healing, subsequent encounter; Other closed fracture of distal end of left femur with routine healing, subsequent encounter Discharge Disposition: Discharge to home or self care 04/20/2025 9:50 AM CDT Office Visit [facility] Orthopaedic Surgery [address] [place] [address] Henok Beach MD Other closed fracture of distal end of right femur with routine healing, subsequent encounter (Primary Dx); Other closed fracture of distal end of left femur with routine healing, subsequent encounter 02/02/2025 12:36 PM CDT - 02/02/2025 11:59 PM CDT Hospital Encounter [facility] [address] [place] [address] Henok Beach MD Other closed fracture of distal end of right femur with routine healing, subsequent encounter; Other closed fracture of distal end of left femur with routine healing, subsequent encounter Discharge Disposition: Discharge to home or self care 02/02/2025 1:00 PM CDT Office Visit [facility] Orthopaedic Surgery Count includes the [facility] 6[address] [place] [address] [place] [address] Henok Beach MD Other closed fracture of distal end of right femur with routine healing, subsequent encounter (Primary Dx); Other closed fracture of distal end of left femur with routine healing, subsequent encounter from Last 3 Months Allergies No known active allergies Medications atorvastatin (LIPITOR) 10 mg tablet Take 1 tablet (10 mg total) by mouth nightly Active furosemide (LASIX) 20 mg tablet Take 1 tablet (20 mg total) by mouth daily 06/09/20 24 Active acetaminophen (TYLENOL) 325 mg tabletIndicatio ns:Pain Take 2 tablets (650 mg total) by mouth every 6 (six) hours 30 tablet 01/04/20 25 Active calcium carbonate (TUMS) 500 mg (200 mg elemental calcium) chewable tablet Take 1 tablet/chew tab (500 mg total) by mouth 4 (four) times a day as needed for indigestion or heartburn 01/04/20 25 026 Active famotidine (PEPCID) 20 mg tablet Take 1 tablet (20 mg total) by mouth daily 01/05/20 25 026 Active senna-docusate (PERICOLACE) 8.6-50 mgIndications:c onstipation Take 2 tablets by mouth 2 (two) times a day as needed for constipation 01/04/20 25 Active apixaban (ELIQUIS) 2.5 mg tabletIndicatio ns:VTE Prophylaxis Following Ortho Surgery Take 1 tablet (2.5 mg total) by mouth 2 (two) times a day For 4 weeks then stop 01/04/20 25 Active cholecalciferol (VITAMIN D-3) 25 mcg (1,000 unit) tablet Take 1 tablet (1,000 Units total) by mouth daily 01/04/20 25 026 Active traMADoL (ULTRAM) 50 mg tablet Take 1 tablet (50 mg total) by mouth every 8 (eight) hours as needed for pain for up to 45 doses 45 tablet 06/12/20 25 Active methocarbamoL (ROBAXIN) 500 mg tablet Take 2 tablets (1,000 mg total) by mouth 3 (three) times a day 01/04/20 25 025 Discontin ued(Thera py completed ) azithromycin (ZITHROMAX) 250 mg tablet 11/30/19 25 025 Discontin ued(Thera py completed ) Tdap (Boostrix Tdap) 2.5-8-5 Lf-mcg-Lf/0.5mL vaccine Discontin ued(Thera py completed ) hydroCHLOROthia zide (HYDRODIURIL) 25 mg tablet Take 0.5 tablets (12.5 mg total) by mouth daily 01/16/20 025 Discontin ued(Thera py completed ) neomycin-polymy red-dexAMETHaso ne (MAXITROL) 3.5mg/mL-10,000 unit/mL-0.1 % ophthalmic suspension INSTILL 1 DROP INTO RIGHT EYE 4 TIMES DAILY FOR 2 WEEKS Discontin ued(Thera py completed ) pneumococcal 13-valent (Prevnar 13, PF,) 0.5 mL vaccine PHARMACIST ADMINISTERED IMMUNIZATION ADMINISTERED AT TIME OF DISPENSING Discontin ued(Thera py completed ) valACYclovir (VALTREX) 500 mg tablet Take 2 tablets (1,000 mg total) by mouth daily Discontin ued(Thera py completed ) varicella zoster (Zostavax, PF,) 19,400 unit/0.65 mL injection Discontin ued(Thera py completed ) HYDROcodone-bharathi taminophen (NORCO) 5-325 mg per tabletIndicatio ns:Pain Take 1 tablet by mouth every 4 (four) hours as needed for pain for up to 30 doses 30 tablet 02/03/20 25 025 Discontin ued(Thera py completed ) Active Problems Problem Noted Date Diagnosed Date Hyperkalemia 12/28/2024 Assessment & Plan (12/29/2024 12:27 PM FLUX CORE WELDER): - Potassium (12/27): 5.0mmol/L - Potassium (12/28): 5.2mmol/L - 12/28: Lokelma 10g BID - Potassium (12/29): 4.5mmol/L - continue to trend Potassium Constipation 12/25/2024 Assessment & Plan (12/29/2024 12:25 PM FLUX CORE WELDER): - 12/25: no BM since admission- milk of magnesia x1 and pericolace increased to 2 tablets. Subsequently, patient reporting not feeling well with nausea. Zofran x1 ordered, bisacodyl suppository x1 - 12/26: enema ordered - 12/29: bowel movement recorded over PM Thrombocytopenia 12/24/2024 Assessment & Plan (12/29/2024 12:27 PM FLUX CORE WELDER): Plt 279 on admission 12/23: Plt 83 12/24: Plt 61 12/25: Plt 76 Likely reactive in setting of ABLA - No lovenox given before platelet levels dropped 12/28: Plt 146 12/29: Plt 164 Continue to monitor CBC Fall 12/24/2024 Assessment & Plan (12/24/2024 11:41 AM FLUX CORE WELDER): Etiology: mechanical TTE obtained for syncope work up (12/23): 1. Concentric LV remodeling. Normal left ventricular systolic function. The Ejection Fraction (Diane's) is measured at 57 %. Left ventricular diastolic parameters are consistent with Grade I diastolic dysfunction (normal LA pressure). The average global longitudinal strain rate is abnormal. There are no regional wall motion abnormalities. Normal right ventricular size. Normal right ventricular systolic function. The estimated pulmonary artery systolic pressure is 40+RA mmHg. Elevated serum creatinine 12/24/2024 Assessment & Plan (12/29/2024 12:26 PM FLUX CORE WELDER): Cr 1.94 on admission Baseline Cr per chart review approximately 1.4-1.9 12/24: Cr 1.79 (2.07), urine output 1050 ml/24 hr + 4 unmeasured occurrences 12/25: UOP 960 ml/24 hr + 6 unmeasured occurrences Creatinine (12/29): 1.72mg/dL Encounter for herb and vitamin supplement manage ment 12/23/2024 Assessment & Plan (12/23/2024 10:14 AM FLUX CORE WELDER): Start vitamin supplementation for healing and nutritional support MVI, Magnesium, Ferrous Sulfate PO, Vit D ABLA (acute blood loss anemia) 12/22/2024 Assessment & Plan (01/02/2025 2:43 PM FLUX CORE WELDER): Admit 12.2 down trend 12/11 to surgical intervention with reported 500 EBL Received total 2 units RBC since admission Hgb wax and wanes 8.7 - 9.3 - 8.1 12/24: Hgb 7.4 (8.1), currently asymptomatic 12/25: Hgb 7.7 Hgb (12/26): 7.7g/dL Hgb (12/28): 7.4g/dL Hgb (12/29): 6.8g/dL 12/29: transfuse 1u pRBC --> post transfusion Hgb 8.6g/dL Hgb (12/30): 8.4g/dL CBC as needed HLD (hyperlipidemia) 12/21/2024 Assessment & Plan (12/21/2024 10:20 AM FLUX CORE WELDER): Chronic Atorvastatin 10 mg daily Overactive bladder 12/21/2024 Assessment & Plan (12/22/2024 9:44 AM FLUX CORE WELDER): Chronic Oxybutynin 15 mg Encounter for medication review 12/21/2024 Assessment & Plan (12/21/2024 10:28 AM FLUX CORE WELDER): [facility] [phone] Treatment Note completed Discharge planning issues 12/21/2024 Assessment & Plan (01/03/2025 11:24 AM FLUX CORE WELDER): 12/21 admit pending Or 12/22 pending stabilization of hgb, PT/OT eval, and drain removal 12/24: hemovac in place, monitor Hgb 12/25: hemovac in place 12/26: awaiting R hemovac removal [must be <30mL], continue PT/OT 12/27 hemovacs out. 12/28: Patient is medically stable for discharge, SW/CM updated. Discharge pending insurance authorization 12/29: transfusion of pRBC over PM. Patient is medically stable for discharge, SW/CM updated. Discharge pending facility acceptance and work comp approval 12/30: Patient is medically stable for discharge, SW/CM updated. Discharge pending facility acceptance Work comp decided not to cover patient's rehab : Appeal is still pending. Liaison will keep CM posted on status. Treatment note done [x] Acute pain 12/21/2024 Assessment & Plan (12/29/2024 12:24 PM FLUX CORE WELDER): Increased Methocarbamol 1000 mg every 8h Acetaminophen 650mg q 6h Oxycodone 5 mg Q 4 hrs prn Bowel regimen Senna, Miralax Closed fracture of neck of left femur, initial e ncounter 12/20/2024 Closed fracture of right distal femur 12/20/2024 Assessment & Plan (12/28/2024 2:22 PM FLUX CORE WELDER): Ortho consult 12/21/24: ORIF + rIMN BL interprosthetic distal femur fx WBAT RLE Eliquis 2.5 bid x 4 weeks Ortho to manage drains, R hemovac removed 12/27 Dressing change in 3 weeks Maintain surgical dressing until follow up PT/OT, pain control Closed fracture of left distal femur 12/20/2024 Assessment & Plan (12/24/2024 11:37 AM FLUX CORE WELDER): ORIF/IMN L interprosthetic distal femur fx WBAT LLE Eliquis 2.5 bid x 4 weeks Ortho to manage drains, L hemovac removed 12/24 Dressing change in 3 weeks Maintain surgical dressing until follow up PT/OT, pain control Swelling of lower extremity 07/20/2024 COVID-19 07/28/2023 Rash 07/06/2023 Nontraumatic complete tear of left rotator cuff 01/03/2022 Overview (01/03/2022): Added automatically from request for surgery [id number] Varicose veins of both legs with edema HTN (hypertension) 02/28/2021 Assessment & Plan (12/21/2024 10:26 AM FLUX CORE WELDER): Chronic Lisinopril 10 mg / Hctz 12.5 Hold resume when clinically appropriate Partial thickness rotator cuff tear 02/28/2021 Ingrowing nail 02/28/2021 Osteoporosis 02/28/2021 Peripheral venous insufficiency 02/28/2021 Pure hypercholesterolemia 02/28/2021 Urinary incontinence 02/28/2021 Venous stasis 02/28/2021 Post-traumatic osteoarthritis of right knee 02/08 Overview (02/28/2021): Added automatically from request for surgery [id number] Gastroesophageal reflux disease without esophagi tis 01/03/2019 Assessment & Plan (01/03/2019 2:55 PM FLUX CORE WELDER): Patient has intermittent heartburn that inconsistently responds to PPIs. No red flags. - We discussed lifestyle modifications that could help. - We discussed the appropriate use of PPI as they should be taken 30-60 minutes before meals. - Will start omeprazole 20 mg every morning. Pain in the shoulder 08/26/2017 Chronic hepatitis C virus infection (CMS/HCC) Assessment & Plan (01/03/2019 2:53 PM FLUX CORE WELDER): Patient with known HCV infection, genotype 1a, prior discontinued interferon/ribavirin treatment due to leukopenia presents to start direct-acting antiviral treatment. She is asymptomatic and recent blood work showed preserved liver function. - Will check HCV viral load, fibrosis score, and CBC. - Depending on findings, will plan to start treatment. - Discussed the importance of not sharing razors or anything that could have dry blood. - Discussed the natural history of HCV and the importance of treatment. Obesity 07/04/2013 Assessment & Plan (12/21/2024 10:21 AM FLUX CORE WELDER): Chronic Phentermine 37.5 mg daily - hold during admission, resume at discharge Immunizations Immunization Administration Dates Next Due Influenza, Unspecified 08/20/2021 Social History Tobacco Use Types Packs/Day Years Used Date Smoking Tobacco: Former Cigarettes 1 25 0 11/09/1969 - 1994 Smokeless Tobacco: Never Tobacco Cessation:Counseling Given: Not Answered Alcohol Use Standard Drinks/Week Comments No 0 (1 standard drink = 0.6 oz pur e alcohol) 1 glass of wine a month Social Connection and Isolat ion Panel [NHANES] Answer Date Recorded In a typical week, how many times do you talk on the phone with family, friends, or neighbors? More than three times a week 12/20/2024 How often do you get togethe r with friends or relatives? More than three times a week 12/20/2024 How often do you attend [facility] or sikhism services? Never 12/20/2024 Do you belong to any clubs o r organizations such as baptist groups, unions, fraternal or athletic groups, or school groups? No 12/20/2024 Attends Club or Organization Meetings Not on nakia e 12/20/2024 Are you , , di vorced, , never , or living with a partner? 12/20/2024 AUDIT-C Answer Date Recorded Q1: How often do you have a drink containing alcohol? Never 12/21/2024 Q2: How many drinks containi ng alcohol do you have on a typical day when you are drinking? Patient does not drink Q3: How often do you have si x or more drinks on one occasion? Never 12/21/2024 Overall Financial Resource Strain (CARDIA) Answe r Date Recorded How hard is it for you to pa y for the very basics like food, housing, medical care, and heating? Not hard at all 12/20/2024 [facility] - Occupational Stress Questionnaire Answer Date Recorded Do you feel stress - tense, restless, nervous, or anxious, or unable to sleep at night because your mind is troubled all the time - these days? Only a little 12/20/2024 Exercise Vital Sign Answer Date Recorde d On average, how many days pe r week do you engage in moderate to strenuous exercise (like a brisk walk)? 5 days 12/20/2024 On average, how many minutes do you engage in exercise at this level? 60 min 12/20/2024 Hunger Vital Sign Answer Date Recorded Within the past 12 months, y ou worried that your food would run out before you got the money to buy more. Never true 12/20/19 25 Within the past 12 months, t he food you bought just didn't last and you didn't have money to get more. Never true 12/20/2024 PRAPARE - Transportation Answer Date Re corded In the past 12 months, has l ack of transportation kept you from medical appointments or from getting medications? No 12/10 In the past 12 months, has l ack of transportation kept you from meetings, work, or from getting things needed for daily living? No 12/20/2024 Housing Stability Vital Sign Answer Fransisco e Recorded In the last 12 months, was t here a time when you were not able to pay the mortgage or rent on time? No 12/20/2024 Number of Times Moved in the Last Year Not on fi le 12/20/2024 At any time in the past 12 m [facility], were you homeless or living in a intermediate (including now)? No 12/20/2024 Personal Safety Answer Date Recorded Have you ever been in or are you currently in a harmful physical or emotional relationship or is someone making you feel afraid or unsafe? 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; [employer] Not on file Not on nakia e Not on file Last Filed Vital Signs Vital Sign Reading Time Taken Comments Blood Pressure 140/88 01/04/2025 11:43 AM FLUX CORE WELDER Pulse 81 01/04/2025 11:43 AM FLUX CORE WELDER Temperature 36.3 C (97.3 F) 01/04/2025 11:43 AM FLUX CORE WELDER Respiratory Rate 18 01/04/2025 11:43 AM FLUX CORE WELDER Oxygen Saturation 99% 01/04/2025 11:43 AM FLUX CORE WELDER Inhaled Oxygen Concentration - - Weight 88.9 kg (196 lb) 12/20/2024 11:56 PM FLUX CORE WELDER Height 170.2 cm (5' 7) 12/20/2024 10:36 PM FLUX CORE WELDER Body Mass Index 30.7 12/20/2024 10:36 PM FLUX CORE WELDER Plan of Treatment Not on file Medical Devices Implanted Type Area Inside Sales Professional Device Identifier Shelf Expiration Date Model / Serial / Lot Synthes Plate Bone Compression Locking Low Profile 16 Hole Right Va Lcp [id number] Ss 02.124.416s - [id number] Implanted:Qty: 1 on 12/21/2024 by Henok Beach MD at [facility] Plate Right: Femur Synthes 124.416S / / [employer] Screw Bone 5mm 80mm Lock Strl 2361-5080s - [id number] Implanted:Qty: 1 on 12/21/2024 by Henok Beach MD at [facility] Screw Left: Femur [employer] [id number] 09/08/2034 2361-5080S / / [id number] [employer] Screw Bone 5mm 50mm Lock Strl 2361-5050s - [id number] Implanted:Qty: 1 on 12/21/2024 by Henok Beach MD at [facility] Screw Left: Femur [employer] [id number] 02/06/2034 2361-5050S / / [id number] [employer] Screw Bone 5mm 70mm Lock Strl 2361-5070s - [id number] Implanted:Qty: 1 on 12/21/2024 by Henok Beach MD at [facility] Screw Left: Femur [employer] [id number] 04/08/2034 2361-5070S / / [id number] [employer] [id number] [place] R High Viscosity Cement 40gm Bone Green - [id number] Implanted:Qty: 1 on 04/01/2021 by Geraldine Portillo MD at [facility] Right: Knee [employer] [id number] 09/08/2024 [id number] / / [id number] [employer] [id number] Palacos R High Viscosity Cement 40gm Bone Green - [id number] Implanted:Qty: 1 on 04/01/2021 by Geraldine Portillo MD at [facility] Right: Knee [employer] [id number] 09/08/2024 [id number] / / [id number] [employer] [id number] Persona 32mm Knee Component Patellar All Poly Latex Free - [id number] Implanted:Qty: 1 on 04/01/2021 by Geraldine Portillo MD at [facility] Right: Knee [employer] [id number] 01/06/2029 [id number] / / [id number] [employer] [id number] Persona 2 Peg Knee Right E Baseplate Tibial Trabecular Metal - [id number] Implanted:Qty: 1 on 04/01/2021 by Geraldine Portillo MD at [facility] Right: Knee [employer] [id number] 03/01/2031 [id number] / / [id number] [employer] [id number] Persona Cruciate Retaining Knee Right 8 Narrow Component Femoral - [id number] Implanted:Qty: 1 on 04/01/2021 by Geraldine Portillo MD at [facility] Right: Knee [employer] [id number] 10/25/2030 [id number] / / [id number] [employer] [id number] Persona 11mm Knee Right 8-11 E-F Insert Articular Vivacit-E - [id number] Implanted:Qty: 1 on 04/01/2021 by Geraldine Portillo MD at [facility] Right: Knee [employer] [id number] 02/06/2025 [id number] / / [id number] [employer] Qex735 Aequalis Perform Reversed 5mm 22mm Peripheral Glenoid Screw - [id number] Implanted:Qty: 1 on 02/05/2022 by Cristian Fu MD at [facility] Left: Shoulder [employer] [id number] / / [employer] [id number] Aequalis Perform Reversed 5mm 38mm Peripheral Glenoid Screw - [id number] Implanted:Qty: 1 on 02/05/2022 by Cristian Fu MD at [facility] Left: Shoulder [employer] [id number] / / [employer] [id number] Insert Perform 10 Deg Dzt6089 - [id number] - [id number] Implanted:Qty: 1 on 02/05/2022 by Cristian Fu MD at [facility] Left: Shoulder [employer] 04/04/2026 [id number] / [id number] / [employer] Dwx2ss Stem Perform Sz 2 Humeral - [id number] - [id number] Implanted:Qty: 1 on 02/05/2022 by Cristian Fu MD at [facility] Left: Shoulder [employer] 10/08/2026 DWX2SS / [id number] / [employer] [id number] Tornier Aequalis Perform 25mm Lateralize Augment Reverse Shoulder - [id number] - [id number] Implanted:Qty: 1 on 02/05/2022 by Cristian Fu MD at [facility] Left: Shoulder [employer] 10/21/2026 NZV363 / [id number] / [employer] [id number] Tornier Aequalis Perform 36mm Reverse Shoulder Standard Sphere - [id number] - [id number] Implanted:Qty: 1 on 02/05/2022 by Cristian Fu MD at [facility] Left: Shoulder [employer] 12/17/2026 SGP396 / [id number] / [employer] [id number] Aequalis Perform Reversed Od6.5 Mm L30 Mm Central Glenoid Screw Baseplate Nonsterile - [id number] Implanted:Qty: 1 on 02/05/2022 by Cristian Fu MD at [facility] Left: Shoulder [employer] [id number] / / [employer] Nail Intramedullary Femoral Retrograde T2 Alpha [id number] Titanium 2339-9712s - [id number] Implanted:Qty: 1 on 12/21/2024 by Henok Beach MD at [facility] Right: Femur [employer] [id number] 01/06/2034 2339-1122S / / [id number] [employer] Screw Bone Locking Cannulated Tibial Oversized Thread Black T2 Alpha 5.0x65mm Titanium 2361-9393s - [id number] Implanted:Qty: 1 on 12/21/2024 by Henok Beach MD at [facility] Right: Femur [employer] [id number] 08/08/2034 2361-5065S / / [id number] [employer] Screw Bone 5mm 75mm Lock Strl 2361-5075s - [id number] Implanted:Qty: 1 on 12/21/2024 by Henok Beach MD at [facility] Right: Femur [employer] [id number] 04/08/2034 2361-5075S / / [id number] [employer] Screw Bone 5mm 80mm Lock Strl 2361-5080s - [id number] Implanted:Qty: 1 on 12/21/2024 by Henok Beach MD at [facility] Right: Femur [employer] [id number] 09/08/20341-5080S / / [id number] [employer] Screw Bone 5mm 35mm T2 Alpha Lock Strl 2360-5035s - [id number] Implanted:Qty: 1 on 12/21/2024 by Henok Beach MD at [facility] Right: Femur [employer] [id number] 07/09/2034 2360-5035S / / [id number] [employer] Screw Bone 5mm 35mm T2 Alpha Lock Strl 2360-5035s - [id number] Implanted:Qty: 1 on 12/21/2024 by Henok Beach MD at [facility] Right: Femur [employer] [id number] 09/08/2034 2360-5035S / / [id number] [employer] Screw Bone 5mm 37.5mm T2 Alpha Lock Strl 2360-5037s - [id number] Implanted:Qty: 1 on 12/21/2024 by Henok Beach MD at [facility] Right: Femur [employer] [id number] 08/08/2034 2360-5037S / / [id number] Synthes 4.5mm 8mm 34mm Self Tap Large Hexagonal Socket Cortex Screw Bone 214.834 - [id number] Implanted:Qty: 1 on 12/21/2024 by Henok Beach MD at [facility] Right: Femur Synthes 214.834 / / Synthes 5mm 70mm Variable Angle Self Tap Lock Stardrive Condylar T25 02.231.270 - [id number] Implanted:Qty: 1 on 12/21/2024 by Henok Beach MD at [facility] Right: Femur Synthes 02.231.270 / / Synthes 5mm 75mm Variable Angle Self Tap Lock [employer] Condylar T25 02.231.275 - [id number] Implanted:Qty: 1 on 12/21/2024 by Henok Beach MD at [facility] Right: Femur Synthes 02.231.275 / / Synthes 5mm 80mm Variable Angle Self Tap Lock [employer] Condylar T25 02.231.280 - [id number] Implanted:Qty: 1 on 12/21/2024 by Henok Beach MD at [facility] Right: Femur Synthes 02.231.280 / / Synthes 5mm 34mm Variable Angle Self Tap Lock [employer] Condylar T25 02.231.234 - [id number] Implanted:Qty: 1 on 12/21/2024 by Henok Beach MD at [facility] Right: Femur Synthes 02.231.234 / / Synthes 5mm 14mm Variable Angle Self Tap Lock [employer] Condylar T25 02.231.014 - [id number] Implanted:Qty: 2 on 12/21/2024 by Henok Beach MD at [facility] Right: Femur Synthes I 02.231.014 / / Synthes 5mm 12mm Variable Angle Self Tap Lock [employer] Condylar T25 02.231.012 - [id number] Implanted:Qty: 1 on 12/21/2024 by Henok Beach MD at [facility] Right: Femur Synthes I 02.231.012 / / [employer] Nail Intramedullary Femoral Retrograde T2 Alpha [id number] Titanium 2339-1122s - [id number] Implanted:Qty: 1 on 12/21/2024 by Henok Beach MD at [facility] Left: Femur [employer] [id number] 05/08/2034 2339-1122S / / [id number] [employer] Screw Bone 5mm 35mm T2 Alpha Lock Strl 2360-5035s - [id number] Implanted:Qty: 1 on 12/21/2024 by Henok Beach MD at [facility] Left: Femur [employer] [id number] 09/08/2034 2360-5035S / / [id number] [employer] Screw Bone 5mm 35mm T2 Alpha Lock Strl 2360-5035s - [id number] Implanted:Qty: 1 on 12/21/2024 by Henok Beach MD at [facility] Left: Femur [employer] [id number] 09/08/2034 2360-5035S / / [id number] Synthes Plate Bone Compression Locking Low Profile 16 Hole Left Va Lcp 4.8p128yk Ss 02.124.417s - [id number] Implanted:Qty: 1 on 12/21/2024 by Henok Beach MD at [facility] Left: Femur Synthes 02.124.417S / / Synthes 4.5mm 8mm 34mm Self Tap Large Hexagonal Socket Cortex Screw Bone 214.834 - [id number] Implanted:Qty: 2 on 12/21/2024 by Henok Beach MD at [facility] Left: Femur Synthes 214.834 / / Synthes 5mm 60mm Variable Angle Self Tap Lock St[employer]rive Condylar T25 02.231.260 - [id number] Implanted:Qty: 1 on 12/21/2024 by Henok Beach MD at [facility] Left: Femur Synthes 02.231.260 / / Synthes 5mm 80mm Variable Angle Self Tap Lock [employer]rive Condylar T25 02.231.280 - [id number] Implanted:Qty: 1 on 12/21/2024 by Henok Beach MD at [facility] Left: Femur Synthes 02.231.280 / / Synthes 5mm 70mm Variable Angle Self Tap Lock [employer] Condylar T25 270 - [id number] Implanted:Qty: 1 on 12/21/2024 by Henok Beach MD at [facility] Left: Femur Synthes 270 / / Synthes 5mm 34mm Variable Angle Self Tap Lock [employer] Condylar T25 234 - [id number] Implanted:Qty: 2 on 12/21/2024 by Henok Beach MD at [facility] Left: Femur Synthes 234 / / Explanted Type Area Inside Sales Professional Device Identifier Shelf Expiration Date Model / Serial / Lot Synthes 5mm 16mm Variable Angle Self Tap Lock Stardrive Condylar T25 016 - [id number] Explanted:Qty: 1 on 12/21/2024 by Henok Beach MD at [facility] Right: Femur Synthes I / / Procedures Procedure Name Priority Date/Time Associated Diagnosis Comments XR FEMUR RIGHT 2 OR MORE VIEWS Schedule Routine, Read Routine (OP Routine) 04/20/2025 9:56 AM CDT Other closed fracture of distal end of right femur with routine healing, subsequent encounter Other closed fracture of distal end of left femur with routine healing, subsequent encounter XR FEMUR LEFT 2 OR MORE VIEWS Schedule Routine, Read Routine (OP Routine) 04/20/2025 9:56 AM CDT Other closed fracture of distal end of right femur with routine healing, subsequent encounter Other closed fracture of distal end of left femur with routine healing, subsequent encounter XR FEMUR LEFT 2 OR MORE VIEWS Schedule Routine, Read Routine (OP Routine) 02/02/2025 12:57 PM CDT Other closed fracture of distal end of right femur with routine healing, subsequent encounter Other closed fracture of distal end of left femur with routine healing, subsequent encounter XR FEMUR RIGHT 2 OR MORE VIEWS Schedule Routine, Read Routine (OP Routine) 02/02/2025 12:57 PM CDT Other closed fracture of distal end of right femur with routine healing, subsequent encounter Other closed fracture of distal end of left femur with routine healing, subsequent encounter HEPATITIS C RNA, QUANTITATIVE, PCR Routine 07/13/2020 11:48 AM CDT Chronic hepatitis C without hepatic coma (HCC) from Last 3 Months or Most Recently Relevant to Health Maintenance Results * XR Femur Right 2 or More Views (04/20/2025 9:56 AM CDT) Anatomical Region Laterality Modality Lower Extremities, Thigh, Femur Right Computed Radiography 04/20/2025 10:3 6 AM CDT Impressions 04/20/2025 10:36 AM CDT Healing, reduced and internally fixated bilateral distal femur fractures in unchanged alignment. Interval fracture of the proximal most interlocking left lateral plate screw. Electronically signed by: Grupo Rojas M.D. Narrative 04/20/2025 10:36 AM CDT XR FEMUR LEFT 2 OR MORE VIEWS, XR FEMUR RIGHT 2 OR MORE VIEWS HISTORY: Bilateral femur fractures. FINDINGS: 2 views each of both femurs are obtained and compared with 02/02/2025. Right femur: There is redemonstrated healing, reduced and internally fixated periprosthetic distal femur fracture with lateral plate and screw construct and retrograde intramedullary nail. There is minimal progressive bridging callus formation. Hardware is intact. Unchanged right total hip and total knee arthroplasties are in expected position. Soft tissues are normal. Left femur: There is redemonstrated healing, reduced and internally fixated distal femoral shaft fracture stabilized by retrograde intramedullary nail and lateral plate and screw construct. There is interval fracture of the proximal most lateral plate and interlocking screw. Remaining hardware is intact. There is progressive osseous bridging at the fracture. 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 Soft tissues are normal. Procedure Note Grupo Rojas MD - 04/20/2025 XR FEMUR LEFT 2 OR MORE VIEWS, XR FEMUR RIGHT 2 OR MORE VIEWS HISTORY: Bilateral femur fractures. FINDINGS: 2 views each of both femurs are obtained and compared with 02/02/2025. Right femur: There is redemonstrated healing, reduced and internally fixated periprosthetic distal femur fracture with lateral plate and screw construct and retrograde intramedullary nail. There is minimal progressive bridging callus formation. Hardware is intact. Unchanged right total hip and total knee arthroplasties are in expected position. Soft tissues are normal. Left femur: There is redemonstrated healing, reduced and internally fixated distal femoral shaft fracture stabilized by retrograde intramedullary nail and lateral plate and screw construct. There is interval fracture of the proximal most lateral plate and interlocking screw. Remaining hardware is intact. There is progressive osseous bridging at the fracture. 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 Soft tissues are normal. IMPRESSION: Healing, reduced and internally fixated bilateral distal femur fractures in unchanged alignment. Interval fracture of the proximal most interlocking left lateral plate screw. Electronically signed by: Grupo Rojas M.D. us Henok Beach MD IMG XR PROCEDURES Final R esult * XR Femur Left 2 or More Views (04/20/2025 9:56 AM CDT) Anatomical Region Laterality Modality Lower Extremities, Thigh, Femur Left Computed Radiography 04/20/2025 10:3 6 AM CDT Impressions 04/20/2025 10:36 AM CDT Healing, reduced and internally fixated bilateral distal femur fractures in unchanged alignment. Interval fracture of the proximal most interlocking left lateral plate screw. Electronically signed by: Grupo Rojas M.D. Narrative 04/20/2025 10:36 AM CDT XR FEMUR LEFT 2 OR MORE VIEWS, XR FEMUR RIGHT 2 OR MORE VIEWS HISTORY: Bilateral femur fractures. FINDINGS: 2 views each of both femurs are obtained and compared with 02/02/2025. Right femur: There is redemonstrated healing, reduced and internally fixated periprosthetic distal femur fracture with lateral plate and screw construct and retrograde intramedullary nail. There is minimal progressive bridging callus formation. Hardware is intact. Unchanged right total hip and total knee arthroplasties are in expected position. Soft tissues are normal. Left femur: There is redemonstrated healing, reduced and internally fixated distal femoral shaft fracture stabilized by retrograde intramedullary nail and lateral plate and screw construct. There is interval fracture of the proximal most lateral plate and interlocking screw. Remaining hardware is intact. There is progressive osseous bridging at the fracture. 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 Soft tissues are normal. Procedure Note Grupo Rojas MD - 04/20/2025 XR FEMUR LEFT 2 OR MORE VIEWS, XR FEMUR RIGHT 2 OR MORE VIEWS HISTORY: Bilateral femur fractures. FINDINGS: 2 views each of both femurs are obtained and compared with 02/02/2025. Right femur: There is redemonstrated healing, reduced and internally fixated periprosthetic distal femur fracture with lateral plate and screw construct and retrograde intramedullary nail. There is minimal progressive bridging callus formation. Hardware is intact. Unchanged right total hip and total knee arthroplasties are in expected position. Soft tissues are normal. Left femur: There is redemonstrated healing, reduced and internally fixated distal femoral shaft fracture stabilized by retrograde intramedullary nail and lateral plate and screw construct. There is interval fracture of the proximal most lateral plate and interlocking screw. Remaining hardware is intact. There is progressive osseous bridging at the fracture. 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 Soft tissues are normal. IMPRESSION: Healing, reduced and internally fixated bilateral distal femur fractures in unchanged alignment. Interval fracture of the proximal most interlocking left lateral plate screw. Electronically signed by: Grupo Rojas M.D. us Henok Beach MD IMG XR PROCEDURES Final R esult * XR Femur Right 2 or More Views (02/02/2025 12:57 PM CDT) Anatomical Region Laterality Modality Lower Extremities, Thigh, Femur Right Computed Radiography 02/02/2025 2:01 PM CDT Impressions 02/02/2025 2:10 PM CDT 1. Healing reduced and internally fixated distal femoral periprosthetic fracture is in unchanged alignment with intact instrumentation. Dictated by: Antonio Cruz MD The radiology attending physician has personally reviewed this study, and had reviewed and/or edited this written report and agrees with it. Electronically signed by: Bassam Elder D.O. Narrative 02/02/2025 2:10 PM CDT EXAMINATION: XR FEMUR RIGHT 2 OR MORE VIEWS, XR FEMUR LEFT 2 OR MORE VIEWS HISTORY: Bilateral femoral fractures COMPARISON: Radiographs 12/22/2024 FINDINGS: Right femur: Healing internally fixated periprosthetic distal right femoral fracture which is comminuted and in unchanged near anatomic alignment with mild displacement of a small butterfly fragment. No evidence of instrumentation failure of the lateral plate and screw construct. Right total hip arthroplasty and right total knee arthroplasty noted. Interval resolution of the soft tissue gas. Partially imaged lumbar spinal instrumented fusion. Osteopenia. Left femur: Healing internally fixated periprosthetic distal left femoral fracture which is comminuted and in unchanged near anatomic alignment with mild displacement of a small butterfly fragment. No evidence of instrumentation failure of the lateral plate and screw construct. Right total hip arthroplasty and right total knee arthroplasty noted. Interval resolution of the soft tissue gas. Osteopenia. Procedure Note Bassam Elder, - 02/02/2025 EXAMINATION: XR FEMUR RIGHT 2 OR MORE VIEWS, XR FEMUR LEFT 2 OR MORE VIEWS HISTORY: Bilateral femoral fractures COMPARISON: Radiographs 12/22/2024 FINDINGS: Right femur: Healing internally fixated periprosthetic distal right femoral fracture which is comminuted and in unchanged near anatomic alignment with mild displacement of a small butterfly fragment. No evidence of instrumentation failure of the lateral plate and screw construct. Right total hip arthroplasty and right total knee arthroplasty noted. Interval resolution of the soft tissue gas. Partially imaged lumbar spinal instrumented fusion. Osteopenia. Left femur: Healing internally fixated periprosthetic distal left femoral fracture which is comminuted and in unchanged near anatomic alignment with mild displacement of a small butterfly fragment. No evidence of instrumentation failure of the lateral plate and screw construct. Right total hip arthroplasty and right total knee arthroplasty noted. Interval resolution of the soft tissue gas. Osteopenia. IMPRESSION: 1. Healing reduced and internally fixated distal femoral periprosthetic fracture is in unchanged alignment with intact instrumentation. Dictated by: Antonio Cruz MD The radiology attending physician has personally reviewed this study, and had reviewed and/or edited this written report and agrees with it. Electronically signed by: Bassam Elder D.O. us Henok Beach MD IMG XR PROCEDURES Final R esult * XR Femur Left 2 or More Views (02/02/2025 12:57 PM CDT) Anatomical Region Laterality Modality Lower Extremities, Thigh, Femur Left Computed Radiography 02/02/2025 2:01 PM CDT Impressions 02/02/2025 2:10 PM CDT 1. Healing reduced and internally fixated distal femoral periprosthetic fracture is in unchanged alignment with intact instrumentation. Dictated by: Antonio Cruz MD The radiology attending physician has personally reviewed this study, and had reviewed and/or edited this written report and agrees with it. Electronically signed by: Bassam Elder D.O. Narrative 02/02/2025 2:10 PM CDT EXAMINATION: XR FEMUR RIGHT 2 OR MORE VIEWS, XR FEMUR LEFT 2 OR MORE VIEWS HISTORY: Bilateral femoral fractures COMPARISON: Radiographs 12/22/2024 FINDINGS: Right femur: Healing internally fixated periprosthetic distal right femoral fracture which is comminuted and in unchanged near anatomic alignment with mild displacement of a small butterfly fragment. No evidence of instrumentation failure of the lateral plate and screw construct. Right total hip arthroplasty and right total knee arthroplasty noted. Interval resolution of the soft tissue gas. Partially imaged lumbar spinal instrumented fusion. Osteopenia. Left femur: Healing internally fixated periprosthetic distal left femoral fracture which is comminuted and in unchanged near anatomic alignment with mild displacement of a small butterfly fragment. No evidence of instrumentation failure of the lateral plate and screw construct. Right total hip arthroplasty and right total knee arthroplasty noted. Interval resolution of the soft tissue gas. Osteopenia. Procedure Note Bassam Elder DO - 02/02/2025 EXAMINATION: XR FEMUR RIGHT 2 OR MORE VIEWS, XR FEMUR LEFT 2 OR MORE VIEWS HISTORY: Bilateral femoral fractures COMPARISON: Radiographs 12/22/2024 FINDINGS: Right femur: Healing internally fixated periprosthetic distal right femoral fracture which is comminuted and in unchanged near anatomic alignment with mild displacement of a small butterfly fragment. No evidence of instrumentation failure of the lateral plate and screw construct. Right total hip arthroplasty and right total knee arthroplasty noted. Interval resolution of the soft tissue gas. Partially imaged lumbar spinal instrumented fusion. Osteopenia. Left femur: Healing internally fixated periprosthetic distal left femoral fracture which is comminuted and in unchanged near anatomic alignment with mild displacement of a small butterfly fragment. No evidence of instrumentation failure of the lateral plate and screw construct. Right total hip arthroplasty and right total knee arthroplasty noted. Interval resolution of the soft tissue gas. Osteopenia. IMPRESSION: 1. Healing reduced and internally fixated distal femoral periprosthetic fracture is in unchanged alignment with intact instrumentation. Dictated by: Antonio Cruz MD The radiology attending physician has personally reviewed this study, and had reviewed and/or edited this written report and agrees with it. Electronically signed by: Bassam Elder D.O. us Henok Beach MD IMG XR PROCEDURES Final R esult * Hepatitis C (HCV) RNA PCR, quantitative (07/13/2020 11:48 AM CDT) HCV RNA result Not Detected TIMO DANIEL ([facility]) Comment: Interpretive data: The quantifiable range of this assay is 15 IU/mL to 100,000,000 IU/mL (1.18 log IU/mL to 8.00 log IU/mL). Testing was performed by the [facility] AmpliPrep/DAVID TaqMan HCV Test version 2.0 ([employer] Testing performed at [facility] Current Interpretive Data was last revised on 2015. Testing performed by: [facility], [address] [facility] [place] [address] Blood specimen (specimen) 07/13/2020 11:48 AM CDT 07/13/2020 8:04 PM CDT Narrative YURY DANIEL ([facility]) - 07/19/2020 7:55 AM CDT Please have this lab completed in August 2020 Please fax results to, , call [phone] with any questions us Lionel Pretty MD LAB MICROBIOLOGY - GEN ERAL ORDERABLES Final Result YURY DANIEL ([facility]) [address] [facility] Department [place] [address] from Last 3 Months or Most Recently Relevant to Health Maintenance Insurance [facility] MEDICARE ADVANTAGE [facility] MEDICARE Address: [address] [address] [place] [address] [facility] CHOICE PLUS [facility] HMO/PPO Address: [address] [address] [place] [address] [facility] MEDICARE MEDICARE [facility] MEDICARE ADVANTAGE [facility] MEDICARE Address: [address] [address] [place] [address] [employer] Advance Directives For more information, please contact: [phone] * Full Code (Latest Code Status on File) Date Activated Date Inactivated Comments 12/20/2024 11:55 PM 01/04/2025 5:39 PM * Full Code Date Activated Date Inactivated Comments 02/05/2022 2:16 PM 02/06/2022 6:05 PM * Full Code Date Activated Date Inactivated Comments 04/01/2021 2:54 PM 04/02/2021 9:10 PM Care Teams Plasma Processing Technician Relationship Specialty Start Date End Date Aakash Srinivasan MD PCP - General 08/17/17
--- OUTSIDE RECORDS SUMMARY | 2025-04-26 13:30 | XMS_ITS | Data Portability ---
Author Organization [place] [facility] [employer], Main Office Address [address] [place] [address] Assessment Encounter Date Assessment Date Assessment LastModified by Organization Details LastModified Time 01/15/2023 01/15/2023 Solu she needs to check her blood pressure regularly she is on phentermine from another provider blood work has been ordered mammograms been ordered colon cancer screening ordered pigmented skin lesion right upper chest dermatology follow-up 4 months [email or web address] Not available 01/15/2023 20:37:03 Plan of Treatment Reminders Order Date Submit Date Provider Last Modified By Organization Details Last Modified Time Details Appointments None recorded. Lab noninvasive colorectal cancer DNA + occult blood screening, QL, stool 2022 023 [facility] (Cologuard Orders Only), [address], [address], [place], [address], 3 09:51:06 CMP, serum or plasma 2022 023 CHRISTOPHER Not available 3 19:02:50 CBC w/ auto diff 2022 023 CHRISTOPHER Not available 3 18:56:02 lipid panel, serum 2022 023 CHRISTOPHER Not available 3 19:02:[address] referral 2022 023 [facility], [facility] [place], [address], 3 09:23:23 Procedures None recorded. Surgeries None recorded. Imaging MAMMO, screening, digital, bilateral 2022 023 CHRISTOPHER Not available 10:53:38 Medication Orders None recorded. Patient TargetsNo targets recorded. Patient InstructionsNo instructions recorded. Reason for Referral Sales Ambassador Referral for S kin lesion Referring Physician: Carli Srinivasan, Internal Medicine, Encounter Date: 01/15/2023 Results Created Date Observation Date Name Description Value Unit Range Abnormal Flag Note LastModifiedBy Organization Detail LastModifiedTime 01/16/2001/15/2023 CBC/C OMPLE TE BLD COUNT W/DIF F white blood cells 6.9 x10'3 /uL 4.2-10 .8 Not Available [facility] (Lab) [address] [place], [address], 01/15/2023 18:56:02 01/16/2001/15/2023 CBC/C OMPLE TE BLD COUNT W/DIF F red blood cells 4.51 x10'6 /uL 3.80-5 .20 Not Available [facility] (Lab) [address] [place], [address], 01/15/2023 18:56:02 01/16/20 23 01/15/2023 CBC/C OMPLE TE BLD COUNT W/DIF F hemoglobin 13.2 g/dL 12.0-1 5.6 Not Available [facility] (Lab) [address] [place], [address], 01/15/2023 18:56:02 01/16/20 23 01/15/2023 CBC/C OMPLE TE BLD COUNT W/DIF F hematocrit 41.5 % 35.7-4 5.7 Not Available [facility] (Lab) [address] [place], [address], 01/15/2023 18:56:02 01/16/2001/15/2023 CBC/C OMPLE TE BLD COUNT W/DIF F mean red cell volume 92.0 fL 82.0-9 9.0 Not Available [facility] (Lab) [address] [place], [address], 01/15/2023 18:56:02 01/16/20 23 01/15/2023 CBC/C OMPLE TE BLD COUNT W/DIF F mean red cell hemoglobin 29.3 pg 27.0-3 3.0 Not Available [facility] (Lab) [address] [place], [address], 01/15/2023 18:56:02 01/16/20 23 01/15/2023 CBC/C OMPLE TE BLD COUNT W/DIF F mean RBC HGB concentratio n 31.8 g/dL 31.0-3 6.0 Not Available [facility] (Lab) [address] [place], [address], 01/15/2023 18:56:02 01/16/20 23 01/15/2023 CBC/C OMPLE TE BLD COUNT W/DIF F red cell distribution width 13.6 % 11.8-1 5.5 Not Available [facility] (Lab) [address] [place], [address], 01/15/2023 18:56:02 01/16/20 23 01/15/2023 CBC/C OMPLE TE BLD COUNT W/DIF F platelets 305 x10'3 /uL 150-40 0 Not Available [facility] (Lab) [address] [place], [address], 01/15/2023 18:56:02 01/16/20 23 01/15/2023 CBC/C OMPLE TE BLD COUNT W/DIF F mean platelet volume 10.3 fL 9.0-12 .4 Not Available [facility] (Lab) [address] [place], [address], 01/15/2023 18:56:02 01/16/20 23 01/15/2023 CBC/C OMPLE TE BLD COUNT W/DIF F neutrophils 49.1 % 39.0-7 2.0 Not Available [facility] (Lab) [address] [place], [address], 01/15/2023 18:56:02 01/16/2001/15/2023 CBC/C OMPLE TE BLD COUNT W/DIF F lymphocytes 30.4 % 16.0-4 7.0 Not Available [facility] (Lab) [address] [place], [address], 01/15/2023 18:56:02 01/16/2001/15/2023 CBC/C OMPLE TE BLD COUNT W/DIF F monocytes 12.1 % 5.0-12 .0 high Not Available [facility] (Lab) [address] [facility] [place], [address], 01/15/2023 18:56:02 01/16/2001/15/2023 CBC/C OMPLE TE BLD COUNT W/DIF F eosinophils 5.8 % 1.0-7. 0 Not Available [facility] (Lab) [address] [place], [address], 01/15/2023 18:56:02 01/16/2001/15/2023 CBC/C OMPLE TE BLD COUNT W/DIF F basophils 2.3 % 0.0-2. 0 high Not Available [facility] (Lab) [address] [place], [address], 01/15/2023 18:56:02 01/16/2001/15/2023 CBC/C OMPLE TE BLD COUNT W/DIF F immature granulocytes 0.3 % 0.00-0 .50 Not Available [facility] (Lab) [address] [place], [address], 01/15/2023 18:56:02 01/16/20 23 01/15/2023 CBC/C OMPLE TE BLD COUNT W/DIF F neutrophils, absolute count 3.38 x10'3 /uL 1.5-8. 0 Not Available [facility] (Lab) [address] [place], [address], 01/15/2023 18:56:02 01/16/2001/15/2023 CBC/C OMPLE TE BLD COUNT W/DIF F lymphocytes, absolute count 2.09 x10'3 /uL 1.07-3 .43 Not Available [facility] (Lab) [address] [place], [address], 01/15/2023 18:56:02 01/16/20 23 01/15/2023 CBC/C OMPLE TE BLD COUNT W/DIF F monocytes, absolute count 0.83 x10'3 /uL 0.29-0 .99 Not Available [facility] (Lab) [address] [place], [address], 01/15/2023 18:56:02 01/16/20 23 01/15/2023 CBC/C OMPLE TE BLD COUNT W/DIF F eosinophils, absolute count 0.40 x10'3 /uL 0.02-0 .53 Not Available [facility] (Lab) [address] [place], [address], 01/15/2023 18:56:02 01/16/20 23 01/15/2023 CBC/C OMPLE TE BLD COUNT W/DIF F basophils, absolute count 0.16 x10'3 /uL 0.01-0 .08 high Not Available [facility] (Lab) [address] [place], [address], 01/15/2023 18:56:02 01/16/20 23 01/15/2023 CBC/C OMPLE TE BLD COUNT W/DIF F immature granulocytes ,absolute 0.02 x10'3 /uL 0.00-0 .05 Not Available [facility] (Lab) [address] [place], [address], 01/15/2023 18:56:02 01/16/20 23 01/15/2023 CBC/C OMPLE TE BLD COUNT W/DIF F nucleated red blood cells 0.0 % -0 Not Available [facility] (Lab) [address] [place], [address], 01/15/2023 18:56:02 01/16/20 23 01/15/2023 CBC/C OMPLE TE BLD COUNT W/DIF F NRBC# 0.00 x10'3 /uL Not Available [facility] (Lab) [address] [place], [address], 01/15/2023 18:56:02 01/16/20 23 01/15/2023 COMPR EHENS JOSEPH METAB OLIC PANEL sodium 136 mmol/ L 137-14 5 low Not Available [facility] (Lab) [address] [place], [address], 01/15/2023 19:02:50 01/16/20 23 01/15/2023 COMPR EHENS JOSEPH METAB OLIC PANEL potassium 4.8 mmol/ L 3.5-5. 1 Not Available [facility] (Lab) [address] [place], [address], 01/15/2023 19:02:50 01/16/20 23 01/15/2023 COMPR EHENS JOSEPH METAB OLIC PANEL chloride 103 mmol/ L 98-107 Not Available [facility] (Lab) [address] [place], [address], 01/15/2023 19:02:50 01/16/20 23 01/15/2023 COMPR EHENS JOSEPH METAB OLIC PANEL carbon dioxide 27 mmol/ L 22-30 Not Available [facility] (Lab) [address] [place], [address], 01/15/2023 19:02:50 01/16/20 23 01/15/2023 COMPR EHENS JOSEPH METAB OLIC PANEL anion gap 10.8 mmol/ L 14-22 low Not Available [facility] (Lab) [address] [place], [address], 01/15/2023 19:02:50 01/16/20 23 01/15/2023 COMPR EHENS JOSEPH METAB OLIC PANEL glucose 92 mg/dL 70-99 Not Available [facility] (Lab) [address] [place], [address], 01/15/2023 19:02:50 01/16/20 23 01/15/2023 COMPR EHENS JOSEPH METAB OLIC PANEL BUN 34 mg/dL 8-19 high Not Available [facility] (Lab) [address] [place], [address], 01/15/2023 19:02:50 01/16/20 23 01/15/2023 COMPR EHENS JOSEPH METAB OLIC PANEL creatinine 1.34 mg/dL 0.66-1 .25 high Not Available [facility] (Lab) [address] [place], [address], 01/15/2023 19:02:50 01/16/20 23 01/15/2023 COMPR EHENS JOSEPH METAB OLIC PANEL GFR 39 Refer ence Range : Milo ge GFR Healt hy Adult : >60 mL/mi n/1.7 3 m2 Chron ic Kidne y Disea se: 15-60 mL/mi n/1.7 3 m2 Kidne y Failu re: <15/m L/min /1.73 m2 www.n iddk. nih.g ov The MDRD study equat ion has not been valid ated in child marielena <18 years of age; pregn ant women ; the elder ly >85 years of age; or in some racia l or ethni c subgr oups, such as Hispa nics. Outsi de the valid ated eugene eters , estim ated GFR is less accur ate, requi ring clini max judgm ent on a case- by-ca se basis . Clini max inter preta tion for other races and ages must be made by the clini jeff. The MDRD study equat ion has not been valid ated for the evalu ation of serum creat inine relat ed to nutri evelyn l statu s or medic ation usage . For perso ns <18 years of age, a pedia tric GFR calcu latpatsy is avail able on the [facility] websi te: https ://rama stein.o rg/pr ofess ional s/kdo qi/gf r_cal culat or Not Available [facility] (Lab) [address] [place], [address], 01/15/2023 19:02:50 01/16/20 23 01/15/2023 COMPR EHENS JOSEPH METAB OLIC PANEL alkaline phosphatase 102 U/L 38-126 Not Available [facility] (Lab) [address] [place], [address], 01/15/2023 19:02:50 01/16/20 23 01/15/2023 COMPR EHENS JOSEPH METAB OLIC PANEL alanine aminotransfe rase 22 U/L 0-35 Not Available [facility] (Lab) [address] [place], [address], 01/15/2023 19:02:50 01/16/20 23 01/15/2023 COMPR EHENS JOSEPH METAB OLIC PANEL aspartate aminotransfe rase 35 U/L 15-37 Not Available [facility] (Lab) [address] [place], [address], 01/15/2023 19:02:50 01/16/20 23 01/15/2023 COMPR EHENS JOSEPH METAB OLIC PANEL bilirubin, total 0.70 mg/dL 0.20-1 .30 Not Available [facility] (Lab) [address] [place], [address], 01/15/2023 19:02:50 01/16/20 23 01/15/2023 COMPR EHENS JOSEPH METAB OLIC PANEL calcium 9.7 mg/dL 8.4-10 .2 Not Available [facility] (Lab) [address] [place], [address], 01/15/2023 19:02:50 01/16/2001/15/2023 COMPR EHENS JOSEPH METAB OLIC PANEL total protein 8.0 g/dL 6.3-8. 2 Not Available [facility] (Lab) [address] [place], [address], 01/15/2023 19:02:50 01/16/2001/15/2023 COMPR EHENS JOSEPH METAB OLIC PANEL albumin 4.6 g/dL 3.0-4. 4 high Not Available [facility] (Lab) [address] [place], [address], 01/15/2023 19:02:50 01/16/2001/15/2023 COMPR EHENS JOSEPH METAB OLIC PANEL globulin 3.4 g/dL 2.6-4. 2 Not Available [facility] (Lab) [address] [place], [address], 01/15/2023 19:02:50 01/16/2001/15/2023 COMPR EHENS JOSEPH METAB OLIC PANEL A/G ratio 1.4 ratio 1.0-2. 0 Not Available [facility] (Lab) [address] [place], [address], 01/15/2023 19:02:50 01/16/2001/15/2023 LIPID PANEL cholesterol 236 mg/dL 140-19 9 high NIH SHELBY NSUS RECOM MENDA TION FOR LOCO STERO L: ADULT CHILD LOW RISK: <200 <170 BORDE RLINE : <200- 239 ----- HIGH RISK: >240 >200 Not Available [facility] (Lab) [address] [place], [address], 01/15/2023 19:02:53 01/16/20 23 01/15/2023 LIPID PANEL triglyceride s 150 mg/dL 0-150 NIH SHELBY NSUS REPOR T RECOM MENDA TION FOR TRIGL YCERI ELISABETH: ADULT CHILD LOW RISK: <150 ----- BODER LINE: 150-1 99 ----- HIGH RISK: >200 ----- Not Available [facility] (Lab) [address] [place], [address], 01/15/2023 19:02:53 01/16/20 23 01/15/2023 LIPID PANEL HDL cholesterol 76 mg/dL 40- Not Available [facility] (Lab) [address] [place], [address], 01/15/2023 19:02:53 01/16/20 23 01/15/2023 LIPID PANEL LDL cholesterol, calculated 130 mg/dL 0-130 NIH SHELBY NSUS REPOR T RECOM MENDA TIONS FOR LDL: ADULT CHILD LOW RISK <130 <110 (OPTI MAL LDL) <100 ----- ZURDO RLINE : 130-1 59 ----- HIGH RISK: >160 >130 A TRIGL YCERI DE RESUL T >400 INVAL IDATE S THE CALCU LATIO N FOR LDL FRACT IONAT ION - THE LDL RESUL T WILL NOT BE REPOR CAIN. Not Available [facility] (Lab) [address] [place], [address], 01/15/2023 19:02:53 03/20/20 23 03/20/2023 COLOG UARD cologuard result reportable NEGATI VE negati ve NEGAT JOSEPH TEST RESUL T. A negat joseph Colog uard resul t indic ates a low likel ihood that a color ectal cance r (CRC) or advan rashard adeno ma (eli omato us polyp s with more advan rashard pre-m align ant featu res) is prese nt. The chanc e that a perso n with a negat joseph Colog uard test has a color ectal cance r is less than 1 in 1500 (nega tive predi ctive value >99.9 %) or has an advan rashard adeno ma is less than 5.3% (nega tive predi ctive value 94.7% ). These data are based on a prosp ectiv e cross -sect ional study of 10,00 0 indiv idual s at [place] ge risk for color ectal cance r who were scree romeo with both Colog uard and colon oscop y. (Jalil Geller al, N Engl J Med 2014; 370(1 4):12 86-12 97) The aishwarya l value (refe rence range ) for this assay is negat joseph. COLOG UARD RE-SC REENI NG RECOM MENDA TION: Perio dic color ectal cance r scree katerine is an impor tant part of preve ntive healt hcare for asymp tomat ic indiv idual s at [place] ge risk for color ectal cance r. Follo wing a negat joseph Colog uard resul t, the Ameri can Cance r Socie ty and U.S. Multi -Soci ety Task Force scree katerine guide lines recom mend a Colog uard re-sc reeni ng inter pina of 3 years . Refer ences : Ameri can Cance r Socie ty Guide line for Color ectal Cance r Scree katerine: https ://ww w.can cer.o rg/ca ncer/ colon -rect al-ca ncer/ detec tion- diagn osis- stagi ng/ac s-rec ommen datio ns.ht ml.; Puma MONDRAGON, Taylor marquis CR, Renny NunezK, Color ectal Cance r Scree katerine: Recom menda tions for Physi cians and Patie nts from the U.S. Multi -Soci ety Task Force on Color ectal Cance r Scree katerine , Am Mayra Ahmadi oente rolog y 2017; 112:1 016-1 030. TEST DESCR IPTIO N: [place] site algor ithmi c alicia sis of stool DNA-b iomar kers with hemog lobin immun oassa y. Quant itati ve value s of indiv idual bioma rkers are not repor table and are not assoc iated with indiv idual bioma rker resul t refer ence range s. Colog uard is inten ded for color ectal cance r scree katerine of adult s of eithe r sex, 45 years or older , who are at [facility] for color ectal cance r (CRC) . Colog uard has been appro jose luis for use by the U.S. FDA. The perfo rmanc e of Colog uard was estab lishe d in a cross secti onal study of [facility] adult s aged 50-84 . Colog uard perfo rmanc e in patie nts ages 45 to 49 years was estim ated by sub-g roup alicia sis of near- age group s. Colon oscop ies perfo rmed for a posit joseph resul t may find as the most clini ruben signi ad t blanquita n: color ectal cance r [4.0% ], advan rashard adeno ma (incl uding sessi le paola cain polyp s great er than or equal to 1cm diame ter) [20%] or non- advan rashard adeno ma [31%] ; or no color ectal neopl finesse [45%] . These estim ates are deriv ed from a prosp ectiv e cross -sect ional scree katerine study of 0 indiv idual s at [facility] for color ectal cance r who were scree romeo with both Colog uard and colon oscop y. (Jalil Anderson et al, N Engl J Med 2014; 370(1 4):12 86-12 97.) Colog uard may produ ce a false negat joseph or false posit joseph resul t (no color ectal cance r or preca ncero us polyp prese nt at colon oscop y follo w up). A negat joseph Colog uard test resul t does not guara ntee the absen ce of CRC or advan rashard adeno ma (pre- cance r). The curre nt Colog uard scree katerine inter pina is every 3 years . (Amer ican Cance r Socie ty and U.S. Multi -Soci ety Task Force ). Colog uard perfo rmanc e data in a 0 patie nt pivot al study using colon oscop y as the refer ence metho d can be acces sed at the follo wing locat ion: www.e xactl abs.c om/re sulefraín . Addit ional descr iptio n of the Colog uard test proce ss, warni ngs and preca ution s can be found at www.c delroy mannd.c om. Not Available [facility] (Cologuard Orders Only) [address], [place], [address], 04/03/2023 09:51:06 01/22/20 23 MAMMO , scree katerine, digit al, bilat eral [facility] [address], [place] [address] Patien t Name: NELI ACOSTA CH Access ion #: [id number] Sex: F : 1954 4 Locati on: RA2 Attend ing Physic jadiel: BETH SRINIVASAN Orderi Physic jadiel: BETH SRINIVASAN Exam Date: 023 8:12 AM Exam Name: MG DIGITA L MARI BILAT SCREEN Admitt ing Diagno sis(es ): RADIOL OGY REPORT - FINAL EXAM: MG DIGITA L MARI BILAT SCREEN HISTOR Y: screen ing mammog moraima 67-yea r-old female with no curren t breast compla ints. COMPAR CHUCK: 2011 TECHNI QUE: Bilate ral CC and MLO views of the breast s were perfor med. Digita l Mammog bea images were obtain ed. CAD (compu ter assist ed detect ion) was utiliz ed. FINDIN GS: There are scatte red areas of fibrog landul ar densit y. No new masses , develo ping asymme tries, suspic ious calcif icatio ns, or patel ectura l distor tion are seen. Page 1 of 2 [facility] Patibuffy t Name: NELI ACOSTA CH Access ion #: [id number] Sex: F : 1954 3 Exam Date: 8:12 AM Exam Name: MG JEN Andujar MARI BILAT SCREEN Admitt ing Diagno sis(es ): IMPRES YULY: BIRADS 1: Assess ment comple te. Negati ve. Recomm end annual screen ing mammog bea. Accord ing to the Americ an Colleg e of Radiol ogy, yearly mammog nicole are recomm ended starti ng at age 40 and contin uing as long as the woman is in good health . Clinic al Breast Exam should be part of the period ic health exam-a bout every 3 years for women in their 20s and 30s and every year for women 40 and over. Breast self-e xam is an option for women in their 20s. Any breast change noted on the breast self-e xam she would be report ed prompt [facility] A negati ve mammog bea report should not discou rage follow -up or biopsy of a clinic ally signif icant findin g and/or abnorm ality. Dense breast tissue may obscur e small neopla sms. This dianne talavera has been entere d into a mammog bea remind er system with a target date for her next mammog moraima. Create d and electr onical ly signed by: Royer zamora MD Signed Date: 9:51 AM (CT) Dictat ed by: Royer zamora MD DD: 9:51 AM (CT) DT: 9:51 AM (CT) Page 2 of 2 [email or web address] [facility] (Imaging) [address] [place], [address], 01/21/2023 17:05:52 Result Notes Documentation Provider Name and Address Organization Details Recorded Time Mammo, Screening, Digital, Bilateral : [facility] [address] [place] [address] Patient Name: CLARIBEL CORONADO Ming Sex: F : 1955 Location: [facility] Attending Physician: CARLI SRINIVASAN Ordering Physician: CARLI SRINIVASAN Exam Date: 01/21/2023 8:12 AM Exam Name: DIGITAL MARI BILAT SCREEN Admitting Diagnosis(es): RADIOLOGY REPORT - FINAL EXAM: MG DIGITAL MARI BILAT SCREEN HISTORY: screening mammogram 67-year-old female with no current breast complaints. COMPARISON: 03/11/2012 TECHNIQUE: Bilateral CC and MLO views of the breasts were performed. Digital Mammography images were obtained. CAD (computer assisted detection) was utilized. FINDINGS: There are scattered areas of fibroglandular density. No new masses, developing asymmetries, suspicious calcifications, or architectural distortion are seen. Page 1 of 2 [facility] Patient Name: CLARIBEL CORONADO Sex: F : 1955 Exam Date: 01/21/2023 8:12 AM Exam Name: DIGITAL MARI BILAT SCREEN Admitting Diagnosis(es): IMPRESSION: BIRADS 1: Assessment complete. Negative. Recommend annual screening mammography. According to the [employer], yearly mammograms are recommended starting at age 40 and continuing as long as the woman is in good health. Clinical Breast Exam should be part of the periodic health exam-about every 3 years for women in their 20s and 30s and every year for women 40 and over. Breast self-exam is an option for women in their 20s. Any breast change noted on the breast self-exam she would be reported promptly to the patient's health care provider. A negative mammography report should not discourage follow-up or biopsy of a clinically significant finding and/or abnormality. Dense breast tissue may obscure small neoplasms. This patient has been entered into a mammography reminder system with a target date for her next mammogram. Created and electronically signed by: Royer Becerril MD Signed Date: 01/21/2023 9:51 AM (CT) Dictated by: Royer Becerril MD (CT) (CT) Page 2 of 2 Hood Beaulieu RN [facility], [facility] [employer] [facility] 01/21/2023 17:05:52 Problems Name Problem SNOMED Code Status Onset Date Resolution Date Notes Provider Name and Address Organization Details Recorded Time Disorder of shoulder 301951648 Active Not Available [facility] 3 19:57:50 Venous varices 417584344 Active Not Available [facility] 3 19:57:50 Chronic hepatitis C 990902085 Active 2018 Not Available [facility] 3 19:57:50 Urinary incontinence 567197113 Active Not Available [facility] 3 19:57:50 Partial thickness rotator cuff tear Active Not Available [facility] 3 19:57:50 Full thickness rotator cuff tear Active Not Available [facility] 3 19:57:50 Peripheral venous insufficiency 26952418 Active Not Available [facility] 3 19:57:50 Gastroesophag eal reflux disease 110225143 Active Not Available [facility] 3 19:57:50 Pure hypercholeste rolemia 386117068 Active Not Available [facility] 3 19:57:50 Ingrowing nail 966344692 Active Not Available [facility] 3 19:57:50 Obesity 593527573 Active Not Available [facility] 3 19:57:50 Essential hypertension 58732659 Active Not Available [facility] 3 19:57:50 Phlebitis 97242149 Active Not Available [facility] 3 19:57:50 Thrombophlebi tis 18320203 Active Not Available [facility] 3 19:57:50 Osteoporosis 14835650 Active Not Available [facility] 3 19:57:50 Venous stasis 89860033 Active Not Available [facility] 3 19:57:50 Varicose veins of lower extremity 00925249 Active Not Available [facility] 3 19:57:50 Skin lesion 75475113 Active 2022 Not Available [facility] 3 19:57:50 Hyperlipidemi a 31369133 Active 2022 Not Available [facility] 3 19:57:50 Eruption 511790388 Active 2022 Kami Coates RN null, [place] - [facility] 3 17:09:56 COVID-19 221565109 Active 2022 Reyna robert [facility] [employer] [facility] 3 17:45:30 Problem Notes None recorded. Procedures Surgical History Date Name Laterality Status Provider Name and Address Organization Details Recorded Time 8 Orthopedic Surgery completed Not Available [facility] 01/07/2023 13:52:07 5 other completed Not Available [facility] 3 13:52:07 5 other completed Not Available [facility] 3 13:52:07 Orthopedic Surgery completed Not Available [facility] 01/07/2023 13:52:07 other completed Not Available [facility] 11/2022 13:52:07 Orthopedic Surgery completed Not Available [facility] 01/07/2023 13:52:07 Imaging Results None recorded. Procedure Notes None recorded. Medical Equipment None Reported. Allergies Allergen ID Allergen Name Allergen Category Reaction Reaction Severity Criticality Documentation Date Start Date Code Code System Note Provider Name and Address Organization Details Recorded Time 01832 codeine medicatio n nausea moderate Not available 01/07/2023 2670 RxNorm N/V LIZZ Tejeda, DALE Osuna Tim [place] [employer] [facility] 3 14:28:16 Medications Name Sig Start Date Stop Date Status Note LastModified by Organization Details LastModified Time celecoxib 200 mg capsule TAKE 1 CAPSULE BY MOUTH TWICE DAILY WITH FOOD NEEDED 09/16 completed Not Available Not Available Not Available tolterodi ne ER 2 mg capsule,e xtended release 24 hr TAKE ONE CAPSULE BY MOUTH ONCE DAILY 05/27 completed changed to 4mg Not Available Not Available Not Available cyclobenz aprine 10 mg tablet 10/08 completed Not Available Not Available Not Available prednison e 10 mg tablet 11/30 completed Not Available Not Available Not Available oxybutyni n chloride ER 15 mg tablet,ex tended release 24 hr TAKE 1 TABLET BY MOUTH ONCE DAILY active Not Available Not Available No t Available apracloni dine 0.5 % eye drops 07/02 completed Not Available Not Available Not Available atorvasta tin 10 mg tablet active Not Available Not Available Not Available lisinopri l 20 mg-hydroc hlorothia zide 12.5 mg tablet TAKE ONE TABLET BY MOUTH ONCE active Not Available Not Available No t Available oxybutyni n chloride ER 10 mg tablet,ex tended release 24 hr active Not Available Not Available Not Available azithromy damien 250 mg tablet TAKE 2 TABLETS (500 MG) BY ORAL ROUTE ONCE DAILY FOR 1 DAY THEN 1 TABLET (250 MG) BY ORAL ROUTE ONCE DAILY FOR 4 DAYS 05/27 completed Not Available Not Available Not Available tolterodi ne ER 4 mg capsule,e xtended release 24 hr TAKE 1 CAPSULE BY MOUTH ONCE DAILY 01/24 completed Not Available Not Available Not Available hydrocodo ne 5 mg-acetam inophen 325 mg tablet TAKE 1 TABLET BY MOUTH EVERY 6 HOURS NEEDED FOR PAIN 09/16 completed Not Available Not Available Not Available ondansetr on HCl 4 mg tablet TAKE 1 TABLET BY MOUTH EVERY 8 HOURS NEEDED FOR NAUSEA FOR VOMITING 09/16 completed Not Available Not Available Not Available topiramat e 25 mg tablet TAKE 1 TABLET BY MOUTH ONCE DAILY IN THE EVENING active Not Available Not Available No t Available amlodipin e 2.5 mg tablet Take 1 tablet(s ) every day by oral route. 03/26 completed Not Available Not Available Not Available phentermi ne 37.5 mg tablet TAKE 1 TABLET BY MOUTH ONCE DAILY [facility] [employer]BMISS[employer] SPECIALIST active Not Available Not Available No t Available valacyclo vir 500 mg tablet 01/24 completed Not Available Not Available Not Available sulfameth oxazole 800 mg-trimet hoprim 160 mg tablet Take 1 tablet twice a day by oral route. 10/08 completed Not Available Not Available Not Available tramadol 50 mg tablet TAKE 2 TABLETS BY MOUTH DAILY active Not Available Not Available No t Available ketorolac 10 mg tablet TAKE 1 TABLET BY MOUTH EVERY 6 HOURS NEEDED FOR PAIN 09/16 completed Not Available Not Available Not Available meloxicam 7.5 mg tablet TAKE 1 TABLET BY MOUTH ONCE DAILY 01/24 completed Not Available Not Available Not Available oxycodone -acetamin ophen 5 mg-325 mg tablet 01/13 completed Not Available Not Available Not Available terbinafi ne HCl 250 mg tablet TAKE 1 TABLET BY MOUTH ONCE DAILY 09/16 completed Not Available Not Available Not Available tolterodi ne 2 mg tablet TAKE 1 TABLET BY MOUTH TWICE DAILY 01/24 completed Not Available Not Available Not Available cephalexi n 500 mg capsule Take 1 capsule every 8 hours by oral route. 03/23 completed Not Available Not Available Not Available neomycin- polymyxin -dexameth 3.5 mg/mL-10, 000 unit/mL-0 .1% eye drops INSTILL 1 DROP INTO RIGHT EYE 4 TIMES DAILY FOR 2 WEEKS active Not Available Not Available No t Available nystatin 100,000 unit/gram topical cream APPLY CREAM TOPICALL Y TO AFFECTED AREA TWICE DAILY active Not Available Not Available No t Available gabapenti n 300 mg capsule TAKE 1 CAPSULE BY MOUTH THREE TIMES DAILY 09/16 completed Not Available Not Available Not Available omeprazol e 20 mg capsule,d elayed release Take 1 capsule every day by oral route. 01/13 completed Not Available Not Available Not Available monteluka st 10 mg tablet 10/11 completed Not Available Not Available Not Available acyclovir 200 mg capsule Take 1 capsule 4 times a day by oral route. 11/22 completed Not Available Not Available Not Available mupirocin 2 % topical ointment APPLY OINTMENT TO EACH NOSTRIL WITH A CLEAN Q TIP TWICE DAILY FOR 5 DAYS BEFORE SURGERY 09/24 completed Not Available Not Available Not Available furosemid e 20 mg tablet TAKE 1 TABLET BY MOUTH ONCE DAILY active Not Available Not Available No t Available ergocalci ferol (vitamin D2) 1,250 mcg (50,000 unit) capsule TAKE 1 CAPSULE BY MOUTH ONCE A WEEK 09/24 completed Not Available Not Available Not Available diazepam 10 mg tablet 04/22 completed Not Available Not Available Not Available lisinopri l 10 mg-hydroc hlorothia zide 12.5 mg tablet TAKE 1 TABLET BY MOUTH ONCE DAILY . APPOINTM ENT REQUIRED FOR FUTURE REFILLS active Not Available Not Available No t Available ibuprofen 600 mg tablet active Not Available Not Available Not Available methylpre dnisolone 4 mg tablets in a dose pack 01/24 completed Not Available Not Available Not Available oxybutyni n chloride 5 mg tablet TAKE 1 TABLET BY MOUTH TWICE DAILY 01/24 completed Not Available Not Available Not Available fluticaso ne propionat e 50 mcg/actua tion nasal spray,anila pension 10/11 completed Not Available Not Available Not Available doxycycli ne hyclate 100 mg tablet Take 1 tablet twice a day by oral route for 12 days. active Not Available Not Available No t Available naproxen 500 mg tablet 01/24 completed Not Available Not Available Not Available amoxicill in 875 mg-potass ium clavulana te 125 mg tablet 10/11 completed Not Available Not Available Not Available oxycodone 5 mg tablet TAKE 1 TO 2 TABLETS BY MOUTH EVERY 4 HOURS NEEDED FOR PAIN 09/16 completed Not Available Not Available Not Available hydroxyzi ne pamoate 25 mg capsule 10/08 completed Not Available Not Available Not Available neomycin- polymyxin -hydrocor t 3.5 mg-10,000 unit/mL-1 % ear drops,anila p 05/27 completed Not Available Not Available Not Available Crestor 5 mg tablet Take 1 tablet every day by oral route. 03/26 completed Not Available Not Available Not Available topiramat e 50 mg tablet TAKE 1 TABLET BY MOUTH IN THE EVENING NEEDED active Not Available Not Available No t Available Boostrix Tdap 2.5 Lf unit-8 mcg-5 Lf/0.5 mL intramusc ular suspensio n active Not Available Not Available Not Available Zostavax (PF) 19,400 unit/0.65 mL subcutane ous suspensio n active Not Available Not Available Not Available Havrix (PF) 1,440 ALICIA unit/mL intramusc ular syringe 11/30 completed Not Available Not Available Not Available bimatopro st 0.03 % drops with applicato r, eyelash base APPLY 1 APPLICAT ION TOPICALL Y TO AFFECTED AREA DAILY ALONG UPPER EYELID MARGIN AT BASE OF EYELASHE S 09/16 completed Not Available Not Available Not Available Prevnar 13 (PF) 0.5 mL intramusc ular syringe PHARMACI ST ADMINIST ERED IMMUNIZA TION ADMINIST ERED AT TIME OF DISPENSI NG active Not Available Not Available No t Available Belviq 10 mg tablet Take 1 tablet twice a day by oral route. 03/26 completed Not Available Not Available Not Available Afluria 0402-3510 45 mcg (15 mcg x 3)/0.5 mL intramusc ular suspensio n ADM 0.5ML UTD active Not Available Not Available No t Available Trokendi XR 25 mg capsule,e xtended release 11/30 completed Not Available Not Available Not Available Fluvirin (PF) 45 mcg (15 mcg x3)/0.5 mL intramusc ular syringe active Not Available Not Available Not Available Afluria (PF) 45 mcg (15 mcg x 3)/0.5 mL IM syringe active Not Available Not Available Not Available Nexium 24HR 20 mg tablet,de layed release Take 1 tablet every day by oral route. 10/15 completed Not Available Not Available Not Available Epclusa 400 mg-100 mg tablet 01/24 completed Not Available Not Available Not Available Fluarix Quad 2078-2569 (PF) 60 mcg (15 mcg x 4)/0.5 mL IM syringe 07/02 completed Not Available Not Available Not Available Fluarix Quad (PF) 60 mcg (15 mcg x 4)/0.5 mL IM syringe 11/30 completed Not Available Not Available Not Available Shingrix (PF) 50 mcg/0.5 mL intramusc ular suspensio n, kit 05/27 completed Not Available Not Available Not Available Fluzone Quad (P F) 60 mcg(15 mcgx4)/0. 5 mL intramusc ular syringe 12/09 completed Not Available Not Available Not Available Fluzone High-Dose (PF) 180 mcg/0.5 mL intramusc ular syringe PHARMACI ST ADMINIST ERED IMMUNIZA TION ADMINIST ERED AT TIME OF DISPENSI NG active Not Available Not Available No t Available BinaxNOW COVID-19 Ag Self Test kit Use as Directed on the Package active Not Available Not Available No t Available Paxlovid 300 mg (150 mg x 2)-100 mg tablets in a dose pack TAKE 3 TABLETS TOGETHER (TWO 150 MG NIRMATRE LVIR TABLETS AND ONE 100 MG RITONAVI R TABLET) BY MOUTH TWICE DAILY FOR 5 DAYS. active Not Available Not Available No t Available Vitals Date Recorded Body height Body mass index (BMI) Body weight Body temperature Heart rate Systolic blood pressure Diastolic blood pressure Provider Name and Address Organization Details Last Updated DateTime 3 170.18 cm 32.1 kg/m2 58137.4 4 g 97.2 [degF] 63 /min 142 mm[Hg] 86 mm[Hg] LIZZ Tejeda [place] [facility] 3 14:32:19 Date Recorded Body mass index (BMI) Body height Heart rate Body temperature Body weight Systolic blood pressure Diastolic blood pressure Provider Name and Address Organization Details Last Updated DateTime 2 32.6 kg/m2 170.18 cm 81 /min 98.2 [degF] 32035.2 1 g 118 mm[Hg] 72 mm[Hg] Not Available [facility] 3 13:52:33 Date Recorded Body mass index (BMI) Body height Heart rate Body temperature Body weight Systolic blood pressure Diastolic blood pressure Provider Name and Address Organization Details Last Updated DateTime 1 35.1 kg/m2 170.18 cm 82 /min 97 [degF] 466635. 69 g 160 mm[Hg] 90 mm[Hg] Not Available [facility] 3 13:52:33 Date Recorded Body mass index (BMI) Body height Heart rate Body temperature Body weight Systolic blood pressure Diastolic blood pressure Provider Name and Address Organization Details Last Updated DateTime 1 34.3 kg/m2 170.18 cm 78 /min 97.2 [degF] 25406.7 3 g 120 mm[Hg] 70 mm[Hg] Not Available [facility] 3 13:52:33 Date Recorded Body mass index (BMI) Body height Heart rate Body temperature Body weight Systolic blood pressure Diastolic blood pressure Provider Name and Address Organization Details Last Updated DateTime 1 33.8 kg/m2 170.18 cm 72 /min 97 [degF] 49221.9 5 g 130 mm[Hg] 80 mm[Hg] Not Available [facility] 3 13:52:33 Social History Question Answer Notes LastModified by Organization Details LastModified Time Tobacco Smoking Status Former Smoker quit 20+ yrs ago Not Available [facility] 01/07/2023 13:52:03 Do You Have An Advance Directive? No MIGRATION.0301 [id number] Information not available 01/07/2023 Are You Blind Or Do You Have Difficulty Seeing? No MIGRATION.0301 [id number] Information not available 01/07/2023 What Is Your Level Of Caffeine Consumption? Heavy MIGRATION.0301 [id number] Information not available 01/07/2023 How Much Tobacco Do You Chew? None MIGRATION.0301 [id number] Information not available 01/07/2023 In The 14 Days Before Symptom Onset, Have You Had Close Contact With A Laboratory-confi rmed COVID-19 While That Case Was Ill? No MIGRATION.030 [id number] Information not available 01/07/2023 In The 14 Days Before Symptom Onset, Have You Had Close Contact With A Person Who Is Under Investigation For COVID-19 While That Person Was Ill? No MIGRATION.030 [id number] Information not available 01/07/2023 Are You Deaf Or Do You Have Serious Difficulty Hearing? No MIGRATION.0301 [id number] Information not available 01/07/2023 What Type Of Diet Are You Following? REGULAR MIGRATION.0301 [id number] Information not available 01/07/2023 Which Illicit Or Recreational Drugs Have You Used? None MIGRATION.030 797217 Information not available 01/07/2023 What Is The Highest Grade Or Level Of School You Have Completed Or The Highest Degree You Have Received? [id number] MIGRATION.030 [id number] Information not available 01/07/2023 Have There Been Any Changes To Your Family Or Social Situation? No MIGRATION.030 330897 Information not available 01/07/2023 What Is The Fluoride Status Of Your Home? Unknown MIGRATION.030 616756 Information not available 01/07/2023 When Did You Quit Smoking? 15+yearssincelastmarco cormier MIGRATION.030 [id number] Information not available 01/07/2023 Are There Any Guns Present In Your Home? Yes MIGRATION.0301 [id number] Information not available 01/07/2023 Do You Use Insect Repellent Routinely? No MIGRATION.0301 [id number] Information not available 01/07/2023 Where Do You Live? [place]House MIGRATION.030 268909 Information not available 01/07/2023 Do You Have A Medical Power Of Arc Air Operator? No MIGRATION.0301 986694 Information not available 01/07/2023 What Was The Date Of Your Most Recent Tobacco Screening? 01/15/2023 [email or web address] Information not available 01/15/2023 Have You Ever Been Counseled For Unhealthy Alcohol Use? No MIGRATION.0301 105485 Information not available 01/07/2023 Do You Have Any Pets? Yes MIGRATION.0301 [id number] Information not available 01/07/2023 What Is Your Relationship Status? MIGRATION.0301 [id number] Information not available 01/07/2023 Do You Use Your Seat Belt Or Car Seat Routinely? Yes MIGRATION.0301 [id number] Information not available 01/07/2023 Do You Have Smoke And Carbon Monoxide Detectors In Your Home? Yes MIGRATION.0301 [id number] Information not available 01/07/2023 Are You Passively Exposed To Smoke? No MIGRATION.0301 760472 Information not available 01/07/2023 Are There Any Smokers In Your House? No MIGRATION.0301 109666 Information not available 01/07/2023 How Much Tobacco Do You Smoke? No MIGRATION.0301 065495 Information not available 01/07/2023 What Types Of Sporting Activities Do You Participate In? None MIGRATION.0301 [id number] Information not available 01/07/2023 Do You Use Sunscreen Routinely? Yes MIGRATION.0301 [id number] Information not available 01/07/2023 Has Tobacco Cessation Counseling Been Provided? No MIGRATION.0301 756094 Information not available 01/07/2023 How Many Years Have You Smoked Tobacco? 20 MIGRATION.0301 864629 Information not available 01/07/2023 Have You Recently Traveled Abroad? No MIGRATION.0301 334714 Information not available 01/07/2023 Do You Have Difficulty Walking Or Climbing Stairs? Yes MIGRATION.0301 779291 Information not available 01/07/2023 Do You Have Any Dietary Restrictions? No MIGRATION.0301 747495 Information not available 01/07/2023 Sex: Female Functional Status Question Answer Note LastModified by Organizat ion Details LastModified Time Do you use any illicit or recreational drugs? No MIGRATION.404369 6973 Information not available 01/07/2023 Do you or have you ever used any other forms of tobacco or nicotine? No MIGRATION.132382 7121 Information not available 01/07/2023 What is your level of alcohol consumption? Occasional MIGRATION.303569 5203 Information not available 01/07/2023 Do you or have you ever used smokeless tobacco? Never used smokeless tobacco MIGRATION.763830 8383 Information not available 01/07/2023 Do you have transportation difficulties? No MIGRATION.662222 0472 Information not available 01/07/2023 Are you able to walk? YESWOREST MIGRATION.734698 7949 Information not available 01/07/2023 Do you have difficulty doing errands alone? No MIGRATION.557493 1094 Information not available 01/07/2023 Are you able to care for yourself? 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 No MIGRATION.121168 3159 Information not available 01/07/2023 Do you or have you ever used e-cigarettes or vape? Never used electronic cigarettes MIGRATION.999822 5296 Information not available 01/07/2023 What is your exercise level? None MIGRATION.084638 5560 Information not available 01/07/2023 Mental Status Question Answer Note LastModified by Organizat ion Details LastModified Time Do you feel stressed (tense, restless, nervous, or anxious, or unable to sleep at night)? [id number] MIGRATION.[id number] 26 Information not available 01/07/2023 Do you have difficulty concentrating, remembering or making decisions? No MIGRATION.[id number] 26 Information not available 01/07/2023 Family History Relationship Description Onset Age of this Age Resolved Age Notes LastModified by Organization Details LastModified Time Sister Diabetes mellitus MIGRATION.185 [id number] Not available 01/07/2023 13:52:08 Mother Diabetes mellitus MIGRATION.262 [id number] Not available 01/07/2023 13:52:08 Mother Heart disease MIGRATION.737 [id number] Not available 01/07/2023 13:52:08 Medical History Condition Response BLINDNESS N KIDNEY STONES N BLADDER PROBLEMS N MRSA N CARPAL TUNNEL SYNDROME N OTHER # 1 Y LUNG DISEASE/DISORDER N HISTORY OF DRUG ABUSE N RADIATION / CHEMOTHERAPY N COPD N Other # 2 Y BLOOD DISEASES Y SURGERY N SCHIZOPHRENIA N DEPRESSION (INCLUDING POST ) N BOWEL PROBLEMS N STROKE/TIA N ULCERS N BENIGN PROSTATIC HYPERPLASIA N MYOCARDIAL INFARCTION N OBESITY Y GERD/NAUSEA Y ANEURYSM N URINARY/BLADDER/KIDNEY PROBLEMS Y INPATIENT PSYCH CARE N CORONARY ARTERY DISEASE (CAD) N ADDICTION CONCERNS N USE OF BLOOD THINNERS N SKIN PROBLEMS N EMPHYSEMA N MUSCLE,JOINT OR BONE PROBLEMS N DVT N STOMACH ULCERS N BLOOD CLOTS N ASTHMA N USE OF NSAIDS N CONCUSSION OR SPINAL TRAUMA N GI PROBLEMS N Low Testosterone N NEUROPATHY N AIDS/HIV N FRACTURES N LIVER DISEASE N HYPERTENSION Y Metal allergy N ANXIETY DISORDER N BLOOD TRANSFUSION N ANEMIA/BLOOD DISORDER N BIPOLAR DISORDER N BRONCHITIS N OSTEOARTHRITIS N TUBERCULOSIS N GLAUCOMA N FOOT PROBLEM N HEART VALVE DISORDERS N ALLERGIES/HAYFEVER N INFECTIOUS DISEASE N HEART ARRHYTHMIA N INSOMNIA N HIGH CHOLESTEROL / HYPERLIPIDEMIA Y RHEUMATOID ARTHRITIS N HYPERTHYROIDISM N NEUROLOGICAL PROBLEMS N EDEMA N CHRONIC PAIN SYNDROME N HYPOTHYROIDISM N CAROTID BLOCKAGE N BACK / NECK PROBLEMS Y BURSITIS N HERNIATED DISC N DIALYSIS N FIBROMYALGIA N OSTEOPOROSIS Y ARTHRITIS Y PERIPHERAL NEUROPATHY N DIABETES, TYPE N HEARTBURN / REFLUX N HEPATITIS / LIVER DISEASE Y PULMONARY DISEASE N GOUT N SLEEP DISORDER N ALZHEIMER'S DISEASE N HERPES N HEADACHES/MIGRAINES N SEIZURES/EPILEPSY N VASCULAR DISEASE N Blood Disorder N DIZZINESS N HEAD TRAUMA OR INJURY N HEART DISEASE/HEART PROBLEMS N KIDNEY DISEASE N MULTIPLE SCLEROSIS N CANCER: SPECIFY N CARDIAC ARRHYTHMIA N ANESTHESIA COMPLICATIONS N ATRIAL FIBRILLATION N PULMONARY EMBOLISM N AUTOIMMUNE DISEASE N Gynecological HistoryNo gynecological history recorded. Obstetrics History GPAL:G 0 P 0 0 0 0 Immunizations Vaccine Type Date Status Note Provider Nam e and Address Organization Details Recorded Time Tdap 3 completed LIZZ Castano[place] [facility] [place] [facility] 04/10/2023 17:09:25 Influenza, split virus, trivalent, preservative 3 completed Not Available [facility] 04/07/2023 19:57:51 pneumococcal polysaccharide PPV23 1 completed Not Available [facility] 04/07/2023 19:57:50 Influenza, high-dose, quadrivalent, PF 0 completed Not Available [facility] 04/07/2023 19:57:50 Pneumococcal conjugate PCV 13 9 completed Not Available [facility] 04/07/2023 19:57:50 Influenza, high-dose, trivalent, PF 9 completed Not Available [facility] 04/07/2023 19:57:50 Influenza, split virus, quadrivalent, preservative 8 completed Not Available [facility] 04/07/2023 19:57:50 zoster live 8 completed Not Available [facility] 04/07/2023 19:57:50 zoster live 8 completed Not Available [facility] 04/07/2023 19:57:50 Influenza, split virus, quadrivalent, preservative 7 completed Not Available [facility] 04/07/2023 19:57:50 Hep A, adult 7 completed Not Available [facility] 04/07/2023 19:57:51 COVID-19, mRNA, LNP-S, bivalent, PF, 30 mcg/0.3 mL dose 3 completed Not Available [facility] 04/07/2023 19:57:50 Influenza, high-dose, trivalent, PF 2 completed Not Available [facility] 04/07/2023 19:57:50 COVID-19, mRNA, LNP-S, PF, 30 mcg/0.3 mL dose 1 completed Not Available [facility] 04/07/2023 19:57:50 Influenza, high-dose, trivalent, PF 1 completed Not Available [facility] 04/07/2023 19:57:50 COVID-19, mRNA, LNP-S, PF, 100 mcg/0.5mL dose or 50 mcg/0.25mL dose 1 completed Not Available [facility] 04/07/2023 19:57:50 COVID-19, mRNA, LNP-S, PF, 100 mcg/0.5mL dose or 50 mcg/0.25mL dose 1 completed Not Available [facility] 04/07/2023 19:57:50 Influenza, high-dose, trivalent, PF 6 completed Not Available [facility] 04/07/2023 19:57:50 Hep A, adult 6 completed Not Available [facility] 04/07/2023 19:57:51 zoster live 6 completed Not Available [facility] 04/07/2023 19:57:50 Influenza, high-dose, trivalent, PF 5 completed Not Available [facility] 04/07/2023 19:57:50 Past Encounters Encounter ID Performer Location Encounter Start Date Encounter Closed Date Diagnosis/Indication Diagnosis SNOMED-CT Code Diagnosis ICD10 Code Diagnosis Note [id number] Carli Srinivasan MD [facility] [address] [facility] , [place] [address] 01/24/2021 00:00:00 01/24/2021 20:53:23 [id number] Carli Srinivasan MD [facility] Internal Med [facility] [address] [facility] [address] [place] [address] 09/18/2021 00:00:00 09/21/2021 09:37:33 [id number] Carli Srinivasan MD [facility] Internal Med [place] [address] [place] [address] [place] [address] 09/24/2021 00:00:00 10/06/2021 22:42:22 [id number] Carli Srinivasan MD [facility] Internal Med [place] [address] [place] [address] y , [place] [address] 10/08/2021 00:00:00 10/08/2021 21:37:51 [id number] Carli Srinivasan MD [facility] Internal Med [place] [address] [place] [address] y , [place] [address] 09/16/2022 00:00:00 09/21/2022 10:31:14 [id number] Carli Srinivasan MD [facility] Internal Med [place] [address] [place] [address] y , [place] [address] 01/15/2023 14:08:05 01/15/2023 15:26:03 Essential hypertension 20314677 I10 Screening mammography 24 769550 Z12.31 Screening for malignant neoplasm of colon 815367012 Z12.11 Skin lesion 84681674 L98 .9 Peripheral venous insufficiency 93402016 I87.2 Venous stasis 91566736 I 87.8 Health Concerns Section Related Observation LastModified by Organization Detai ls LastModified Time None Recorded Concern Status LastModified by Organization Details LastModified Time None Recorded Advance Directives Directive N: Payers Insurance Date Sequence Insurance Name Policy Number Policy Huffman Covered Member ID Huffman Member ID Guarantor Name 07/27/2023 1 [place] Claribel Coronado [id number] Claribel Coronado 07/27/2023 2 [employer] (MEDICARE SUPPLEMENT) Claribel Coronado [id number] Claribel Coronado Notes Date Note Type Note Provider Name and Address Organization Details Recorded Time 01/15/2023 text/html Hypertension No headache no dizzinessSkin lesion several months right side of chest can culturesVenous insufficiency legs no red swollen skin Carli Srinivasan MD [address] [place] [address], [facility] [address] [place], [address], [place] [facility] [employer] [facility] 01/15/2023 20:37:21 OBGyn Episode No OBEpisode recorded.
--- OUTSIDE RECORDS SUMMARY | 2025-04-26 13:30 | XMS_ITS | Clinical Summary ---
Author Organization [facility] Address [address] [place] [address] Phone Care Team Providers Care Life Skills Coordinator Name Role Phone Aakash Srinivasan MD Primary Care Provider [phone] Allergies No known active allergies Medications EPCLUSA 400-100 MG Tablet Take 1 Tab by mouth daily. 9 Active tolterodine (DETROL LA) 4 MG CAPSULE SR 24 HR Take 1 Cap by mouth daily. 9 Active Omeprazole (PRILOSEC PO) Take by mouth. A ctive IBUPROFEN PO Take by mouth as needed. Active oxybutynin (DITROPAN XL) 15 MG TABLET SR 24 HR daily. 2 Active Phentermine HCl 37.5 MG Tablet phentermine 37.5 mg tablet TAKE 1 TABLET BY MOUTH ONCE DAILY 1 Active lisinopril-hydr oCHLOROthiazide (PRINZIDE, ZESTORETIC) 10-12.5 MG Tablet Take by mouth daily. 1/2 Tab 2 Active famotidine (PEPCID) 20 MG Tablet Take 20 mg by mouth 2 times daily. Sometimes 3 time a day Active atorvastatin (LIPITOR) 10 MG Tablet Take 10 mg by mouth daily. Active Family History Medical History Relation Name Comments Cancer Maternal Grandmother Heart Disease Mother Relation Name Status Comments Father unknown Maternal Grandmother Mother Social History Tobacco Use Types Packs/Day Years Used Date Smoking Tobacco: Former Cigarettes Q uit: 1989 Smokeless Tobacco: Never Tobacco Cessation:Counseling Given: Not Answered Alcohol Use Standard Drinks/Week Comments Not Currently 0 (1 standard drink = 0.6 oz pur e alcohol) Comments No Sex and Gender Information Value Date Recorded Sex Assigned at Not on file Legal Sex Female 12:43 AM CDT Gender Identity Not on file Sexual Orientation Not on file Last Filed Vital Signs Vital Sign Reading Time Taken Comments Blood Pressure 160/92 03/30/2023 9:12 AM CDT Pulse 60 03/30/2023 9:12 AM CDT Temperature 36.1 C (97 F) 03/30/2023 9:12 AM CDT Respiratory Rate 16 03/30/2023 9:12 AM CDT Oxygen Saturation 100% 03/30/2023 9:12 AM CDT Inhaled Oxygen Concentration - - Weight 93 kg (205 lb) 03/25/2023 9:00 AM CDT Height 170.2 cm (5' 7) 03/25/2023 9:00 AM CDT Body Mass Index 32.11 03/25/2023 9:00 AM CDT Plan of Treatment Health Maintenance Due Date Last Done Comments TdaP Immunization 1954 Cologuard 1999 Colonoscopy 1999 Colorectal Cancer Screening 1999 Immunochemical Fecal Occult Blood 1999 SARS-COV-2 Immunization ( season) 2024 11/20/2022, 09/10/2021, 09/10/2021, Additional history exists Influenza Immunization (Season Ended) 2025 07/31/2022, 08/20/2021, 08/01/2021, Additional history exists Respiratory Syncytial Virus (RSV) Immunization (Adult) (1 - 1-dose 75+ series) 2029 Zoster Immunization Completed 05/25/2018, 03/01/2018, 02/22/2016 Pneumococcal Immunization (50+ years) Completed 08/01/2021, 07/18/2019 Pneumococcal Immunization Combined Discontinued 08/01/2021, 07/18/2019 Hepatitis B Immunization Aged Out No longer eligible based on patient's age to complete this topic Human Papillomavirus (HPV) Immunization Aged Out No longer eligible based on patient's age to complete this topic Meningococcal Immunization (ACWY) Aged Out No longer eligible based on patient's age to complete this topic Rotavirus Immunization Aged Out No lo nger eligible based on patient's age to complete this topic Medical Devices Implanted Type Area Machine Joint Cutter Device Identifier Shelf Expiration Date Model / Serial / Lot Right Lens Implanted:Qty: 1 on 03/30/2023 by Aakash Barajas MD at [facility] Right: Eye [employer] 01/25/2026 [id number] / [id number] / [id number] Insurance [facility]ARE [facility] Care Teams Life Skills Coordinator Relationship Specialty Start Date End Date Aakash Srinivasan MD PCP - General Internal Medicine 03/29/19
--- OUTSIDE RECORDS SUMMARY | 2025-04-26 13:30 | XMS_ITS | Clinical Summary ---
Author Organization [facility] Address [address] [place] [address] Care Team Providers Care Admitting Representative Name Role Phone Aakash Srinivasan MD Primary Care Provider [phone] Allergies No known active allergies Medications atorvastatin [...] for up to 45 doses 45 tablet 04/20/20 25 Active methocarbamoL (ROBAXIN) 500 mg tablet Take 2 tablets (1,000 mg total) by mouth 3 (three) times a day 01/04/20 25 025 Discontin ued(Thera py completed ) azithromycin (ZITHROMAX) 250 mg tablet 11/30/19 25 025 Discontin ued(Thera py completed ) Tdap (Boostrix Tdap) 2.5-8-5 Lf-mcg-Lf/0.5mL vaccine 025 Discontin ued(Thera py completed ) hydroCHLOROthia zide (HYDRODIURIL) 25 mg tablet Take 0.5 tablets (12.5 mg total) by mouth daily 01/16/20 25 025 Discontin ued(Thera py completed ) neomycin-polymy red-dexAMETHaso ne (MAXITROL) 3.5mg/mL-10,000 unit/mL-0.1 % ophthalmic suspension INSTILL 1 DROP INTO RIGHT EYE 4 TIMES DAILY FOR 2 WEEKS 025 Discontin ued(Thera py completed ) pneumococcal 13-valent (Prevnar 13, PF,) 0.5 mL vaccine PHARMACIST ADMINISTERED IMMUNIZATION ADMINISTERED AT TIME OF DISPENSING 025 Discontin ued(Thera py completed ) valACYclovir (VALTREX) 500 mg tablet Take 2 tablets (1,000 mg total) by mouth daily 025 Discontin ued(Thera py completed ) varicella zoster (Zostavax, PF,) 19,400 unit/0.65 mL injection 025 Discontin ued(Thera py completed ) HYDROcodone-bharathi taminophen (NORCO) 5-325 mg per tabletIndicatio ns:Pain Take 1 tablet by mouth every 4 (four) hours as needed for pain for up to 30 doses 30 tablet 02/03/20 25 025 Discontin ued(Thera py completed ) Active Problems Problem Noted Date Diagnosed Date Hyperkalemia 12/28/2024 Assessment & Plan (12/29/2024 12:27 PM VENTURE CAPITALIST): - Potassium (12/27): 5.0mmol/L - Potassium (12/28): 5.2mmol/L - 12/28: Lokelma 10g BID - Potassium (12/29): 4.5mmol/L - continue to trend Potassium Constipation 12/25/2024 Assessment & Plan (12/29/2024 12:25 PM VENTURE CAPITALIST): - 12/25: no BM since admission- milk of magnesia x1 and pericolace increased to 2 tablets. Subsequently, patient reporting not feeling well with nausea. Zofran x1 ordered, bisacodyl suppository x1 - 12/26: enema ordered - 12/29: bowel movement recorded over PM Thrombocytopenia 12/24/2024 Assessment & Plan (12/29/2024 12:27 PM VENTURE CAPITALIST): Plt 279 on admission 12/23: Plt 83 12/24: Plt 61 12/25: Plt 76 Likely reactive in setting of ABLA - No lovenox given before platelet levels dropped 12/28: Plt 146 12/29: Plt 164 Continue to monitor CBC Fall 12/24/2024 Assessment & Plan (12/24/2024 11:41 AM VENTURE CAPITALIST): Etiology: mechanical TTE obtained for syncope work [...] 12/24/2024 Assessment & Plan (12/29/2024 12:26 PM VENTURE CAPITALIST): Cr 1.94 on admission Baseline Cr per chart review approximately 1.4-1.9 12/24: Cr 1.79 (2.07), urine output 1050 ml/24 hr + 4 unmeasured occurrences 12/25: UOP 960 ml/24 hr + 6 unmeasured occurrences Creatinine (12/29): 1.72mg/dL Encounter for herb and vitamin supplement manage ment 12/23/2024 Assessment & Plan (12/23/2024 10:14 AM VENTURE CAPITALIST): Start vitamin supplementation for healing and nutritional support MVI, Magnesium, Ferrous Sulfate PO, Vit D ABLA (acute blood loss anemia) 12/22/2024 Assessment & Plan (01/02/2025 2:43 PM VENTURE CAPITALIST): Admit 12.2 down trend 12/11 to surgical [...] 12/21/2024 Assessment & Plan (12/21/2024 10:20 AM VENTURE CAPITALIST): Chronic Atorvastatin 10 mg daily Overactive bladder 12/21/2024 Assessment & Plan (12/22/2024 9:44 AM VENTURE CAPITALIST): Chronic Oxybutynin 15 mg Encounter for medication review 12/21/2024 Assessment & Plan (12/21/2024 10:28 AM VENTURE CAPITALIST): [facility] [phone] Treatment Note completed Discharge planning issues 12/21/2024 Assessment & Plan (01/03/2025 11:24 AM VENTURE CAPITALIST): 12/21 admit pending Or 12/22 pending stabilization [...] comp decided not to cover patient's rehab 12/31-: Appeal is still pending. Liaison will keep CM posted on status. Treatment note done [x] Acute pain 12/21/2024 Assessment & Plan (12/29/2024 12:24 PM VENTURE CAPITALIST): Increased Methocarbamol 1000 mg every 8h Acetaminophen 650mg q 6h Oxycodone 5 mg Q 4 hrs prn Bowel regimen Senna, Miralax Closed fracture of neck of left femur, initial e ncounter 12/20/2024 Closed fracture of right distal femur 12/20/2024 Assessment & Plan (12/28/2024 2:22 PM VENTURE CAPITALIST): Ortho consult 12/21/24: ORIF + rIMN BL interprosthetic distal femur fx WBAT RLE Eliquis 2.5 bid x 4 weeks Ortho to manage drains, R hemovac removed 12/27 Dressing change in 3 weeks Maintain surgical dressing until follow up PT/OT, pain control Closed fracture of left distal femur 12/20/2024 Assessment & Plan (12/24/2024 11:37 AM VENTURE CAPITALIST): ORIF/IMN L interprosthetic distal femur fx WBAT LLE Eliquis 2.5 bid x 4 weeks Ortho to manage drains, L hemovac removed 12/24 Dressing change in 3 weeks Maintain surgical dressing until follow up PT/OT, pain control Swelling of lower extremity 07/20/2024 COVID-19 07/28/2023 Rash 07/06/2023 Nontraumatic complete tear of left rotator cuff 01/03/2022 Overview (01/03/2022): Added automatically from request for surgery [id number] Varicose veins of both legs with edema HTN (hypertension) 02/28/2021 Assessment & Plan (12/21/2024 10:26 AM VENTURE CAPITALIST): Chronic Lisinopril 10 mg / Hctz 12.5 Hold resume when clinically appropriate Partial thickness rotator cuff tear 02/28/2021 Ingrowing nail 02/28/2021 Osteoporosis 02/28/2021 Peripheral venous insufficiency 02/28/2021 Pure hypercholesterolemia 02/28/2021 Urinary incontinence 02/28/2021 Venous stasis 02/28/2021 Post-traumatic osteoarthritis of right knee 02/08 Overview (02/28/2021): Added automatically from request for surgery [id number] Gastroesophageal reflux disease without esophagi tis 01/03/2019 Assessment & Plan (01/03/2019 2:55 PM VENTURE CAPITALIST): Patient has intermittent heartburn that inconsistently responds to PPIs. No red flags. - We discussed lifestyle modifications that could help. - We discussed the appropriate use of PPI as they should be taken 30-60 minutes before meals. - Will start omeprazole 20 mg every morning. Pain in the shoulder 08/26/2017 Chronic hepatitis C virus infection (CMS/HCC) Assessment & Plan (01/03/2019 2:53 PM VENTURE CAPITALIST): Patient with known HCV infection, genotype 1a, [...] 07/04/2013 Assessment & Plan (12/21/2024 10:21 AM VENTURE CAPITALIST): Chronic Phentermine 37.5 mg daily - hold during admission, resume at discharge Encounters Date Type Department Care Team Description 04/20/2025 9:50 AM CDT Office Visit [facility] [address] [facility] [address] [place] [address] Henok Beach MD Other closed fracture of distal end of right femur with routine healing, subsequent encounter (Primary Dx); Other closed fracture of distal end of left femur with routine healing, subsequent encounter 04/20/2025 9:30 AM CDT - 04/20/2025 11:59 PM CDT Hospital Encounter [id number] [address] [place] [address] [address] [place] [id number] Other closed fracture of distal end of right femur with routine healing, subsequent encounter; Other closed fracture of distal end of left femur with routine healing, subsequent encounter Discharge Disposition: Discharge to home or self care 02/02/2025 1:00 PM CDT Office Visit [facility] [address] [facility] 6th [place] [address] [place] [address] Henok Beach MD Other closed fracture of distal end of right femur with routine healing, subsequent encounter (Primary Dx); Other closed fracture of distal end of left femur with routine healing, subsequent encounter 02/02/2025 12:36 PM CDT - 02/02/2025 11:59 PM CDT Hospital Encounter [facility] [address] [place] [address] Henok Beach MD Other closed fracture of distal end of right femur with routine healing, subsequent encounter; Other closed fracture of distal end of left femur with routine healing, subsequent encounter Discharge Disposition: Discharge to home or self care from Last 3 Months Immunizations Immunization Administration Dates Next Due Influenza, Unspecified 08/20/2021 Surgical History Surgery Date Site/Laterality Comments TOTAL HIP ARTHROPLASTY bilateral KNEE ARTHROPLASTY SPINAL FUSION ROTATOR CUFF REPAIR FLUORO GUIDED ASPIRATION OR INJECTION LARGE JOINT RIGHT 09/09/2019 Right FLUORO GUIDED INJECTION SHOULDER LEFT 06/17/2021 Lef t FLUORO GUIDED INJECTION SHOULDER LEFT 10/29/2021 Lef t KNEE ARTHROSCOPY W/ LATERAL RELEASE BREAST SURGERY CATARACT EXTRACTION COSMETIC SURGERY JOINT REPLACEMENT Medical History Medical History Date Comments HTN (hypertension) Venous stasis GERD (gastroesophageal reflux disease) Arthritis Cataract Family History Medical History Relation Name Comments Liver cancer Maternal Grandmother Diabetes Mother Dari maharaj Family histor y of diabetes mellitus - (Added by TW Conv) Heart attack Mother Dari maharaj Heart disease Mother Dari maharaj Family histo ry of cardiac disorder - (Added by TW Conv) Anesthesia problems Neg Hx Relation Name Status Comments Maternal Grandmother Mother Dari maharaj Social History Tobacco Use Types Packs/Day Years [...] week 12/20/2024 How often do you attend chur or taoist services? Never 12/20/2024 Do you belong to any clubs o r organizations such as temple groups, unions, fraternal or athletic groups, or [...] and heating? Not hard at all 12/20/2024 [facility] [place] [facility] Occupat ional Health - Occupational Stress Questionnaire Answer Date [...] any time in the past 12 m [facility], were you homeless or living in a custodial (including now)? No 12/20/2024 Personal Safety Answer Date Recorded Have you ever been in or are you currently in a harmful physical or emotional relationship or is someone making you feel afraid or unsafe? 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; [employer] Not on file Not on nakia e Not on file Obstetrics History Last Filed Vital Signs Vital Sign Reading Time Taken Comments Blood Pressure 140/88 01/04/2025 11:43 AM VENTURE CAPITALIST Pulse 81 01/04/2025 11:43 AM VENTURE CAPITALIST Temperature 36.3 C (97.3 F) 01/04/2025 11:43 AM VENTURE CAPITALIST Respiratory Rate 18 01/04/2025 11:43 AM VENTURE CAPITALIST Oxygen Saturation 99% 01/04/2025 11:43 AM VENTURE CAPITALIST Inhaled Oxygen Concentration - - Weight 88.9 kg (196 lb) 12/20/2024 11:56 PM VENTURE CAPITALIST Height 170.2 cm (5' 7) 12/20/2024 10:36 PM VENTURE CAPITALIST Body Mass Index 30.7 12/20/2024 10:36 PM VENTURE CAPITALIST Plan of Treatment Health Maintenance Due Date Last Done Comments Breast Cancer Screening-Mammogram 1954 Colon Cancer Screening-Colonoscopy 1955 Depression Screening 1954 Osteoporosis Screening-Bone Density Scan 1954 Hepatitis B Screening 1972 Well Visit 65+ 2019 Covid-19 Vaccine (4 - 2023-2 5 season) 2024 09/10/2021, 09/10/2021, 01/16/2021, Additional history exists Influenza Vaccine (Season Ended) 2025 07/31/2022, 08/20/2021, 08/01/2021, Additional history exists Fall Risk Assessment 01/04/2026 01/04/2025 DTaP/Tdap/Td Vaccine (2 - Td or Tdap) 04/10/2033 04/10/2023 Zoster Vaccine Completed 05/25/2018, 05/09, 03/01/2018, Additional history exists Hepatitis C Screening Completed 07/13/2020 , 07/13/2020, 07/10/2020, Additional history exists Pneumococcal vaccine 65+ Completed 08/01/2021, 07/2019 Medical Devices Implanted Type Area Vice President Planning Device Identifier Shelf Expiration Date Model / Serial / Lot Synthes Plate Bone Compression Locking Low Profile 16 Hole Right Va Lcp 4.1z650su Ss s - [id number] Implanted:Qty: 1 on 12/21/2024 by Henok Beach MD at [facility] Plate Right: Femur Synthes [id number] / / [employer] Screw Bone 5mm 80mm Lock Strl 2361-5080s - [id number] Implanted:Qty: 1 on 12/21/2024 by Henok Beach MD at [facility] Screw Left: Femur [employer] [id number] 09/08/2034 2361-5080S / / [id number] [employer] Screw Bone 5mm 50mm Lock Strl 2361-5050s - [id number] Implanted:Qty: 1 on 12/21/2024 by Henok Beach MD at [facility] Screw Left: Femur [employer] [id number] 02/06/2034 2361-5050S / / [id number] [employer] Screw Bone 5mm 70mm Lock Strl 2361-5070s - [id number] Implanted:Qty: 1 on 12/21/2024 by Henok Beach MD at [facility] Screw Left: Femur [employer] [id number] 04/08/2034 2361-5070S / / [id number] [employer] [id number] [place]os R High Viscosity Cement 40gm Bone Green - [id number] Implanted:Qty: 1 on 04/01/2021 by Geraldine Portillo MD at [facility] Right: Knee [employer] [id number] 09/08/2024 [id number] / / [id number] [employer] [id number] Palacos R High Viscosity Cement 40gm Bone Green - [id number] Implanted:Qty: 1 on 04/01/2021 by Geraldine Portillo MD at [facility] Right: Knee [employer] [id number] 09/08/2024 [id number] / / [id number] [employer] [id number] Persona 32mm Knee Component Patellar All Poly Latex Free - [id number] Implanted:Qty: 1 on 04/01/2021 by Geraldine Portillo MD at [facility] Right: Knee [employer] [id number] 01/06/2029 [id number] / / [id number] [employer] [id number] Persona 2 Peg Knee Right E Baseplate Tibial Trabecular Metal - [id number] Implanted:Qty: 1 on 04/01/2021 by Geraldine Portillo MD at [facility] Right: Knee [employer] [id number] 03/01/2031 [id number] / / [id number] [employer] [id number] Persona Cruciate Retaining Knee Right 8 Narrow Component Femoral - [id number] Implanted:Qty: 1 on 04/01/2021 by Geraldine Portillo MD at [facility] Right: Knee [employer] [id number] 10/25/2030 [id number] / / [id number] [employer] [id number] Persona 11mm Knee Right 8-11 E-F Insert Articular Vivacit-E - [id number] Implanted:Qty: 1 on 04/01/2021 by Geraldine Portillo MD at [facility] Right: Knee [employer] [id number] 02/06/2025 [id number] / / [id number] [employer] [id number] Aequalis Perform Reversed 5mm 22mm Peripheral Glenoid Screw - [id number] Implanted:Qty: 1 on 02/05/2022 by Cristian Fu MD at [facility] Left: Shoulder [employer] [id number] / / [employer] [id number] Aequalis Perform Reversed 5mm 38mm Peripheral Glenoid Screw - [id number] Implanted:Qty: 1 on 02/05/2022 by Cristian Fu MD at [facility] Left: Shoulder [employer] DEP939 / / [employer] [id number] Insert Perform 10 Deg [id number] - [id number] - [id number] Implanted:Qty: 1 on 02/05/2022 by Cristian Fu MD at [facility] Left: Shoulder [employer] 04/04/2026 [id number] / [id number] / [employer] Dwx2ss Stem Perform Sz 2 Humeral - [id number] - [id number] Implanted:Qty: 1 on 02/05/2022 by Cristian Fu MD at [facility] Left: Shoulder deCarta 10/08/2026 DWX2SS / [id number] / [employer] [id number] Tornier Aequalis Perform 25mm Lateralize Augment Reverse Shoulder - [id number] - [id number] Implanted:Qty: 1 on 02/05/2022 by Cristian Fu MD at [facility] Left: Shoulder [employer]a 10/21/2026 CVH337 / [id number] / [employer] [id number] Tornier Aequalis Perform 36mm Reverse Shoulder Standard Sphere - [id number] - [id number] Implanted:Qty: 1 on 02/05/2022 by Cristian Fu MD at [facility] Left: Shoulder [employer] 12/17/2026 PUW828 / [id number] / [employer] [id number] Aequalis Perform Reversed Od6.5 Mm L30 Mm Central Glenoid Screw Baseplate Nonsterile - [id number] Implanted:Qty: 1 on 02/05/2022 by Cristian Fu MD at [facility] Left: Shoulder deCarta IHK685 / / [employer] Nail Intramedullary Femoral Retrograde T2 Alpha [id number] Titanium 2333-8962s - [id number] Implanted:Qty: 1 on 12/21/2024 by Henok Beach MD at [facility] Right: Femur [employer] [id number] 01/06/2034 2339-1122S / / [id number] [employer] Screw Bone Locking Cannulated Tibial Oversized Thread Black T2 Alpha 5.0x65mm Titanium 7031-1705s - [id number] Implanted:Qty: 1 on 12/21/2024 by Henok Beach MD at [facility] Right: Femur [employer] [id number] 08/08/2034 2361-5065S / / [id number] [employer] Screw Bone 5mm 75mm Lock Strl 2361-5075s - [id number] Implanted:Qty: 1 on 12/21/2024 by Henok Beach MD at [facility] Right: Femur [employer] [id number] 04/08/2034 2361-5075S / / [id number] [employer] Screw Bone 5mm 80mm Lock Strl 2361-5080s - [id number] Implanted:Qty: 1 on 12/21/2024 by Heonk Beach MD at [facility] Right: Femur [employer] [id number] 09/08/2034 2361-5080S / / [id number] [employer] Screw Bone 5mm 35mm T2 Alpha Lock Strl 2360-5035s - [id number] Implanted:Qty: 1 on 12/21/2024 by Henok Beach MD at [facility] Right: Femur [employer] [id number] 07/09/2034 2360-5035S / / [id number] [employer] Screw Bone 5mm 35mm T2 Alpha Lock Strl 2360-5035s - [id number] Implanted:Qty: 1 on 12/21/2024 by Henok Beach MD at [facility] Right: Femur [employer] [id number] 09/08/2034 2360-5035S / / [id number] [employer] Screw Bone 5mm 37.5mm T2 Alpha Lock Strl 2360-5037s - [id number] Implanted:Qty: 1 on 12/21/2024 by Henok Beach MD at [facility] Right: Femur [employer] [id number] 08/08/2034 2360-5037S / / [id number] Synthes 4.5mm 8mm 34mm Self Tap Large Hexagonal Socket Cortex Screw Bone 214.834 - [id number] Implanted:Qty: 1 on 12/21/2024 by Henok Beach MD at [facility] Right: Femur Synthes 214.834 / / Synthes 5mm 70mm Variable Angle Self Tap Lock Stardrive Condylar T25 02.231.270 - [id number] Implanted:Qty: 1 on 12/21/2024 by Henok Beach MD at [facility] Right: Femur Synthes 02.231.270 / / Synthes 5mm 75mm Variable Angle Self Tap Lock Stardrive Condylar T25 02.231.275 - [id number] Implanted:Qty: 1 on 12/21/2024 by Henok Beach MD at [facility] Right: Femur Synthes 02.231.275 / / Synthes 5mm 80mm Variable Angle Self Tap Lock Stardrive Condylar T25 02.231.280 - [id number] Implanted:Qty: 1 on 12/21/2024 by Henok Beach MD at [facility] Right: Femur Synthes 02.231.280 / / Synthes 5mm 34mm Variable Angle Self Tap Lock Stardrive Condylar T25 02.231.234 - [id number] Implanted:Qty: 1 on 12/21/2024 by Henok Beach MD at [facility] Right: Femur Synthes 02.231.234 / / Synthes 5mm 14mm Variable Angle Self Tap Lock Stardrive Condylar T25 02.231.014 - [id number] Implanted:Qty: 2 on 12/21/2024 by Henok Beach MD at [facility] Right: Femur Synthes I 02.231.014 / / Synthes 5mm 12mm Variable Angle Self Tap Lock Stardrive Condylar T25 02.231.012 - [id number] Implanted:Qty: 1 on 12/21/2024 by Henok Beach MD at [facility] Right: Femur Synthes I 02.231.012 / / [employer] Nail Intramedullary Femoral Retrograde T2 Alpha [id number] Titanium 2339-1122s - [id number] Implanted:Qty: 1 on 12/21/2024 by Henok Beach MD at [facility] Left: Femur [employer] [id number] 05/08/2034 2339-1122S / / [id number] [employer] Screw Bone 5mm 35mm T2 Alpha Lock Strl 2360-5035s - [id number] Implanted:Qty: 1 on 12/21/2024 by Henok Beach MD at [facility] Left: Femur [employer] [id number] 09/08/2034 2360-5035S / / [id number] [employer] Screw Bone 5mm 35mm T2 Alpha Lock Strl 2360-5035s - [id number] Implanted:Qty: 1 on 12/21/2024 by Henok Beach MD at [facility] Left: Femur [employer] [id number] 09/08/20340-5035S / / [id number] Synthes Plate Bone Compression Locking Low Profile 16 Hole Left Va Lcp 4.5y528aj Ss 02.124.417s - [id number] Implanted:Qty: 1 on 12/21/2024 by Henok Beach MD at [facility] Left: Femur Synthes 02.124.417S / / Synthes 4.5mm 8mm 34mm Self Tap Large Hexagonal Socket Cortex Screw Bone 214.834 - [id number] Implanted:Qty: 2 on 12/21/2024 by Henok Beach MD at [facility] Left: Femur Synthes 214.834 / / Synthes 5mm 60mm Variable Angle Self Tap Lock St[employer]rive Condylar T25 02.231.260 - [id number] Implanted:Qty: 1 on 12/21/2024 by Henok Beach MD at [facility] Left: Femur Synthes 02.231.260 / / Synthes 5mm 80mm Variable Angle Self Tap Lock St[employer]rive Condylar T25 02.231.280 - [id number] Implanted:Qty: 1 on 12/21/2024 by Henok Beach MD at [facility] Left: Femur Synthes 02.231.280 / / Synthes 5mm 70mm Variable Angle Self Tap Lock St[employer]rive Condylar T25 02.231.270 - [id number] Implanted:Qty: 1 on 12/21/2024 by Henok Beach MD at [facility] Left: Femur Synthes 02.231.270 / / Synthes 5mm 34mm Variable Angle Self Tap Lock St[employer] Condylar T25 - [id number] Implanted:Qty: 2 on 12/21/2024 by Henok Beach MD at [facility] Left: Femur Synthes / / Explanted Type Area Vice President Planning Device Identifier Shelf Expiration Date Model / Serial / Lot Synthes 5mm 16mm Variable Angle Self Tap Lock [employer] Condylar T25 - [id number] Explanted:Qty: 1 on 12/21/2024 by Henok Beach MD at [facility] Right: Femur Synthes I / / Procedures [...] screw. Electronically signed by: Grupo Rojas M.D. Henok Beach MD IMG XR PROCEDURES Final [...] AmpliPrep/DAVID TaqMan HCV Test version 2.0 ([employer] Testing performed at [facility] Current Interpretive Data was last revised on 2015. Testing performed by: [facility], [address] [facility] [place]., [address] Blood specimen (specimen) 07/13/2020 11:48 AM CDT 07/13/2020 8:04 PM CDT Narrative YURY DANIEL (MERE) - 07/19/2020 7:55 AM CDT Please have this lab completed in August 2020 Please fax results to, , call [phone] with any questions us Lionel Pretty MD LAB MICROBIOLOGY - GEN ERAL ORDERABLES Final Result YURY DANIEL (MERE) [address] [facility] [place] [address] from Last 3 Months or Most Recently Relevant to Health Maintenance Insurance [facility] MEDICARE [facility] CHOICE PLUS [facility] MEDICARE MEDICARE T SENIOR SUPPLEMENT [facility] MEDICARE ADVANTAGE [employer] Advance Directives For more information, please contact: [phone] * Full Code (Latest Code Status on File) Date Activated Date Inactivated Comments 12/20/2024 11:55 PM 01/04/2025 5:39 PM * Full Code Date Activated Date Inactivated Comments 02/05/2022 2:16 PM 02/06/2022 6:05 PM * Full Code Date Activated Date Inactivated Comments 04/01/2021 2:54 PM 04/02/2021 9:10 PM Care Teams Admitting Representative Relationship Specialty Start Date End Date Akaash Srinivasan MD PCP - General 08/17/17
== END 2025-04-26 11:37 | disposition home or self-care (01) ==
LOC: CHSIMG 11:41
PROVIDERS: PCP Internal Medicine; Visit Provider Internal Medicine
DX: Z78.0 Asymptomatic menopausal state (principal)
CPT/HCPCS: 77080

== ENCOUNTER 2025-07-17 13:21 | Outpatient (CLI) | payer MEDICARE, SELFPAY ==
--- NOTE | ~2025-07-17 | US_ITS ---
EXAMINATION: US renal BI DATE: 07/17/2025 13:35 INDICATION: Abnormal laboratory tests. TECHNIQUE: Multiple ultrasound grayscale images of the kidneys were obtained. COMPARISON: None. FINDINGS: The right kidney measures 8.9 x 4.0 x 4.2 cm. The left kidney measures 8.9 x 3.6 x 4.4 cm. The kidneys demonstrate normal parenchymal echogenicity. There is no hydronephrosis. The bladder is normal. IMPRESSION: 1. Mild atrophy of the kidneys. No hydronephrosis. Reviewed, dictated and finalized at location E.
== END 2025-07-17 13:22 | disposition home or self-care (01) ==
LOC: GOSHIMG 13:22
PROVIDERS: PCP Internal Medicine; Visit Provider Internal Medicine
DX: R89.9 Unspecified abnormal finding in specimens from other organs, systems and tissues (principal)
CPT/HCPCS: 76770